=== PATIENT | male | born 1955 | race Caucasian/White ===

== ENCOUNTER 2017-02-24 18:09 | Inpatient (IN) | payer OTHER ==
[~2017-02-24] VITALS: Ht 180.3 cm; Wt 147.6 kg
[~2017-02-24 18:09] MED LIST: AMLO5TAB22 PO; ASPI325T PO; METO100 PO; MULT1TAB46 PO; PRAV40 PO; TICA90 PO
[2017-02-24] MEDS ORDERED: SODIUM CHLOR 0.9% 1000 ML INJ 1,000 ML IV SCH (18:21)
[2017-02-24 18:23] VITALS: BP 151/80; PULSE 60; RESP 24; TEMP 97.9; O2SAT 95
[2017-02-24] MEDS ORDERED: SODIUM CHLORIDE 0.9% FLUSH 5 ML FLUSH IV FLUSH PRN (18:30)
[2017-02-24 18:37] LABS: AUTOMATED NEUTROPHIL # 10.8 TH/MM3 (1.8-7.7); BASOPHIL # 0.1 TH/MM3 (0-0.2); BASOPHIL % 0.4 % (0.0-2.0); EOSINOPHIL # 0.1 TH/MM3 (0-0.4); EOSINOPHIL % 0.6 % (0.0-4.0); HEMATOCRIT 38.1 % (39.0-51.0); LYMPHOCYTE # 1.5 TH/MM3 (1.0-4.8); MEAN CELL VOLUME 86.5 FL (80.0-100.0); MEAN CORPUSCULAR HGB CONC 32.4 % (32.0-36.0); MONO % 8.6 % (0.0-8.0); NEUT % 79.4 % (16.0-70.0); PLATELET COUNT 263 TH/MM3 (150-450); RED CELL DISTRIBUTION WIDTH 16.6 % (11.6-17.2); WHITE BLOOD COUNT 13.6 TH/MM3 (4.0-11.0)
[2017-02-24 18:40] LABS: HEMO FLAGS AUTO DIFF
[2017-02-24] MEDS ORDERED: LISI40TA PO (18:44)
[2017-02-24] MEDS ORDERED: CLOP75TA PO (18:44)
[2017-02-24] MEDS ORDERED: PRAV40TA2 PO (18:44)
[2017-02-24] MEDS ORDERED: METO100T PO (18:44)
[2017-02-24] MEDS ORDERED: FURO20TA PO (18:44)
[2017-02-24] MEDS ORDERED: AMLO5TAB2 PO (18:44)
[2017-02-24 18:45] LABS: APTT (PATIENT) 26.6 SEC (24.3-30.1); INTERNATIONAL NORMALIZED RATIO 1.2 RATIO; PROTHROMBIN TIME - PATIENT 13.8 SEC (9.8-11.6)
--- NOTE | 2017-02-24 18:47 | PD ---
HPI Chief Complaint: General Weakness Time Seen by Provider: 18:21 Travel History International Travel<30 days: No Contact w/Intl Traveler<30days: No Traveled to known affect area: No History of Present Illness HPI The patient is a 61-year-old male who presents to the emergency department via EMS for generalized weakness. The patient notes a 1 month history of intermittent shortness of breath that is worse with exertion. The patient has some increased generalized malaise and weakness of the last several days. The patient states he developed shortness of breath while bending over to put on his shoes earlier today. He does note mild bilateral lower extremity edema as well as bilateral lower extremity weakness. The patient does have a history of chronic osteoarthritis to the right hip with "[id number]" arthritis which occasionally makes it difficult to ambulate and stand upright. He denies any headache, chest pain, nausea, vomiting, diarrhea, or abdominal pain. He does note slightly discolored urine which is been dark over the last several days, attributes it to dehydration. The patient does have a history of atrial fibrillation for which she takes Plavix. Symptoms are moderate, there are no alleviating or exacerbating factors. PFSH Past Medical History Arthritis: Yes Asthma: Yes Atrial Fibrillation: Yes Autoimmune Disease: No Blood Disorders: No Cancer: No Cardiovascular Problems: Yes Chemotherapy: No Diabetes: Yes Patient Takes Glucophage: No Endocrine: No Genitourinary: No Hypertension: Yes Immune Disorder: Yes Musculoskeletal: Yes Neurologic: No Psychiatric: No Respiratory: Yes Myocardial Infarction: Yes (stents x 2012 ) Radiation Therapy: No Past Surgical History Abdominal Surgery: Yes Appendectomy: Yes Joint Replacement: Yes Oral Surgery: Yes Pacemaker: No Tonsillectomy: Yes Other Surgery: Yes Social History Alcohol Use: No Tobacco Use: No Substance Use: No Allergies-Medications (Allergen,Severity, Reaction): Coded Allergies: ciprofloxacin (Unverified Allergy, Severe, 02/12/17) levofloxacin (Unverified Allergy, Severe, 02/12/17) morphine (Unverified Allergy, Severe, Nausea/Vomiting, 02/12/17) Reported Meds & Prescriptions Reported Meds & Active Scripts Active Reported Furosemide 20 Mg Tab 20 Mg PO DAILY Metoprolol Tartrate 100 Mg Tab 100 Mg PO BID Amlodipine (Amlodipine Besylate) 5 Mg Tab 5 Mg PO DAILY Clopidogrel (Clopidogrel Bisulfate) 75 Mg Tab 75 Mg PO DAILY Pravastatin 40 Mg Tab 40 Mg PO DAILY Lisinopril 40 Mg Tab 40 Mg PO DAILY Review of Systems Except as stated in HPI: all other systems reviewed are Neg General / Constitutional: No: Fever HENT: No: Headaches, Lightheadedness Cardiovascular: Positive: Irregular Rhythm, No: Chest Pain or Discomfort, Diaphoresis Respiratory: Positive: Shortness of Breath, No: Cough Gastrointestinal: No: Nausea, Vomiting, Diarrhea, Abdominal Pain Genitourinary: No: Dysuria Musculoskeletal: Positive: Weakness Neurologic: Positive: Weakness Physical Exam Narrative GENERAL: Awake, alert, pleasant 61-year-old male who appears his stated age and is in no acute respiratory distress. SKIN: Focused skin assessment warm/dry. HEAD: Atraumatic. Normocephalic. EYES: Pupils equal and round. No scleral icterus. No injection or drainage. ENT: No nasal bleeding or discharge. Slightly dry mucous membranes. NECK: Trachea midline. No JVD. CARDIOVASCULAR: Irregularly irregular, heart rate in the 70s. RESPIRATORY: No accessory muscle use. Minimally diminished breath sounds in the bases bilateral with crackles. GASTROINTESTINAL: Abdomen obese, no rebound tenderness. MUSCULOSKELETAL: Bilateral lower extremity pitting edema from the knees inferiorly. Ecchymosis noted over the right great toe. NEUROLOGICAL: Awake and alert. No obvious cranial nerve deficits. Motor grossly within normal limits. Normal speech. Nonfocal. Oriented 4. Follows commands without difficulty. PSYCHIATRIC: Appropriate mood and affect; insight and judgment normal. Data Data Last Documented VS Vital Signs Date Time Temp Pulse Resp B/P (MAP) Pulse Ox O2 Delivery O2 Flow Rate FiO2 02/24/17 18:23 97.9 60 24 151/80 (103) 95 Nasal Cannula 2.00 Orders Orders Electrocardiogram (02/24/17 18:21) Complete Blood Count With Diff (02/24/17 18:21) Comprehensive Metabolic Panel (02/24/17 18:21) Creatine Kinase (Cpk) (02/24/17 18:21) Prothrombin Time / Inr (Pt) (02/24/17 18:21) Act Partial Throm Time (Ptt) (02/24/17 18:21) Troponin I (02/24/17 18:21) Thyroid Stimulating Hormone (02/24/17 18:21) Urinalysis - C+S If Indicated (02/24/17 18:21) Chest, Single Ap (02/24/17 18:21) Ct Brain W/O Iv Contrast(Rout) (02/24/17 18:21) Blood Glucose (02/24/17 18:21) Ecg Monitoring (02/24/17 18:21) Iv Access Insert/Monitor (02/24/17 18:21) Oximetry (02/24/17 18:21) Sodium Chloride 0.9% Flush (Ns Flush) (02/24/17 18:30) Sodium Chlor 0.9% 1000 Ml Inj (Ns 1000 M (02/24/17 18:21) B-Type Natriuretic Peptide (02/24/17 18:21) Toe (Min 2vws) (02/24/17 ) Potassium Chloride (Kcl) (02/24/17 19:15) Furosemide Inj (Lasix Inj) (02/24/17 19:15) Admit Order (Ed Use Only) (02/24/17 20:01) Labs Laboratory Tests Test 02/24/17 18:25 02/24/17 20:00 White Blood Count 13.6 TH/MM3 Red Blood Count 4.40 MIL/MM3 Hemoglobin 12.3 GM/DL Hematocrit 38.1 % Mean Corpuscular Volume 86.5 FL Mean Corpuscular Hemoglobin 28.0 PG Mean Corpuscular Hemoglobin Concent 32.4 % Red Cell Distribution Width 16.6 % Platelet Count 263 TH/MM3 Mean Platelet Volume 8.7 FL Neutrophils (%) (Auto) 79.4 % Lymphocytes (%) (Auto) 11.0 % Monocytes (%) (Auto) 8.6 % Eosinophils (%) (Auto) 0.6 % Basophils (%) (Auto) 0.4 % Neutrophils # (Auto) 10.8 TH/MM3 Lymphocytes # (Auto) 1.5 TH/MM3 Monocytes # (Auto) 1.2 TH/MM3 Eosinophils # (Auto) 0.1 TH/MM3 Basophils # (Auto) 0.1 TH/MM3 CBC Comment AUTO DIFF Differential Total Cells Counted 100 Neutrophils % (Manual) 63 % Band Neutrophils % 15 % Lymphocytes % 11 % Monocytes % 7 % Neutrophils # (Manual) 11.2 TH/MM3 Metamyelocytes 1 % Myelocytes 3 % Nucleated Red Blood Cells 2 /100 WBC Differential Comment FINAL DIFF MANUAL Toxic Granulation 1+ Platelet Estimate NORMAL Platelet Morphology Comment NORMAL Prothrombin Time 13.8 SEC Prothromb Time International Ratio 1.2 RATIO Activated Partial Thromboplast Time 26.6 SEC Blood Urea Nitrogen 41 MG/DL Creatinine 1.34 MG/DL Random Glucose 109 MG/DL Total Protein 6.8 GM/DL Albumin 2.3 GM/DL Calcium Level 8.7 MG/DL Alkaline Phosphatase 153 U/L Aspartate Amino Transf (AST/SGOT) 53 U/L Alanine Aminotransferase (ALT/SGPT) 71 U/L Total Bilirubin 2.6 MG/DL Sodium Level 141 MEQ/L Potassium Level 3.3 MEQ/L Chloride Level 105 MEQ/L Carbon Dioxide Level 27.7 MEQ/L Anion Gap 8 MEQ/L Estimat Glomerular Filtration Rate 54 ML/MIN Total Creatine Kinase 16 U/L Troponin I LESS THAN 0.02 NG/ML B-Type Natriuretic Peptide 330 PG/ML Thyroid Stimulating Hormone 3rd Gen 4.740 uIU/ML Urine Color DARK-YELLOW Urine Turbidity HAZY Urine pH 6.0 Urine Specific [place] 1.027 Urine Protein 30 mg/dL Urine Glucose (UA) NEG mg/dL Urine Ketones TRACE mg/dL Urine Occult Blood MOD Urine Nitrite NEG Urine Bilirubin NEG Urine Urobilinogen 8.0 MG/DL Urine Leukocyte Esterase LARGE Urine RBC 6 /hpf Urine WBC 63 /hpf Urine Bacteria MANY /hpf Urine Hyaline Casts 4 /lpf Urine Mucus FEW /lpf Microscopic Urinalysis Comment CATH-CULTURE IND Urine Random Creatinine 206 MG/DL Urine Random Total Protein 88 MG/DL Urine Protein/Creatinine Ratio 0.43 MDM Medical Decision Making Medical Screen Exam Complete: Yes Emergency Medical Condition: Yes Medical Record Reviewed: Yes Interpretation(s) EKG reveals atrial fibrillation with a rate of 77. Intraventricular conduction delay with QRS of 148 ms. RSR prime in V1. Differential Diagnosis Differential diagnosis includes generalized weakness, rhabdomyolysis, myopathy, neuropathy, subdural hemorrhage, pneumonia, UTI, hyponatremia, dehydration, acute renal failure, deconditioning. Narrative Course IV was established, labs are drawn and sent, and the patient was placed on cardiac telemetry monitoring and continuous pulse oximetry monitoring. EKG was ordered and interpreted. CT of the brain was obtained. Chest x-ray was obtained. IV fluids were started. X-ray of the right great toe was obtained. The patient was signed out to the oncoming physician at 7 PM the laboratory evaluation, x-ray pending, and CT pending. Condition: Stable Luis M Logan MD Feb 24, 2017 18:47
--- NOTE | 2017-02-24 18:51 | RADRPT ---
EXAM DATE/TIME: 02/24/2017 18:33 [facility] COMPARISON: CHEST SINGLE AP, September 23, 2014, 15:28. INDICATIONS : Short of breath MEDICAL HISTORY : Diabetes mellitus type II. SURGICAL HISTORY : None. ENCOUNTER: Initial ACUITY: 2 days PAIN SCORE: 0/10 LOCATION: Chest FINDINGS: The heart is enlarged. Diffuse bilateral pulmonary infiltrates are noted consistent with moderate pu lmonary edema versus pneumonia. Clinical correlation is recommended. Degenerative changes are noted throughout the thoracic spine. CONCLUSION: 1. Diffuse bilateral pulmonary infiltrates consistent with moderate pulmonary edema versus pneumonia. Clinical correlation is recommended. 2. Cardiomegaly. 3. Degenerative changes throughout the thoracic spine. Adan Leon MD on February 24, 2017 at 18:39 Board Certified Radiologist. This report was verified electronically.
[2017-02-24 18:57] LABS: ALT (GPT) 71 U/L (12-78); ANION GAP 8 MEQ/L (5-15); AST (GOT) 53 U/L (15-37); BICARBONATE 27.7 MEQ/L (21.0-32.0); BLOOD UREA NITROGEN 41 MG/DL (7-18); CHLORIDE 105 MEQ/L (98-107); GLOMERULAR FILTRATION RATE 54 ML/MIN (>89); POTASSIUM 3.3 MEQ/L (3.5-5.1); SODIUM (NA) 141 MEQ/L (136-145)
--- NOTE | 2017-02-24 19:03 | RADRPT ---
EXAM DATE/TIME: 02/24/2017 18:35 [facility] COMPARISON: No previous studies available for comparison. INDICATIONS : Pain from hitting toe on . MEDICAL HISTORY : None. SURGICAL HISTORY : None. ENCOUNTER: Initial ACUITY: 1 day PAIN SCORE: 1/10 LOCATION: Right first digit. FINDINGS: Examination of the first digit of the right foot demonstrates no evidence of fracture or dislocation. No radiopaque foreign bodies are seen. The soft tissues are intact. CONCLUSION: No fracture or subluxation demonstrated of the great toe. Moderate to severe osteoarthritis in the fi rst metatarsophalangeal joint and sesamoids. Kalen Simmons MD on February 24, 2017 at 19:01 Board Certified Radiologist. This report was verified electronically.
--- NOTE | 2017-02-24 19:05 | RADRPT ---
EXAM DATE/TIME: 02/24/2017 18:41 [facility] COMPARISON: CT BRAIN W/O CONTRAST, September 23, 2014, 15:02. INDICATIONS : Generalized weakness. RADIATION DOSE: 44.48 CTDIvol (mGy) MEDICAL HISTORY : Cardiovascular disease. Hypertension. SURGICAL HISTORY : Appendectomy. ENCOUNTER: Initial ACUITY: 1 day PAIN SCALE: 0/10 LOCATION: cranial TECHNIQUE: Multiple contiguous axial images were obtained of the head. Using automated exposure control and adj ustment of the mA and/or kV according to patient size, radiation dose was kept as low as reasonably a chievable to obtain optimal diagnostic quality images. DICOM format image data is available electro nically for review and comparison. FINDINGS: CEREBRUM: The ventricles are normal for age. No evidence of midline shift, mass lesion, hemorrhage or acute in farction. No extra-axial fluid collections are seen. Subcentimeter, old lacunar infarct of the right thalamus again noted. POSTERIOR FOSSA: The cerebellum and brainstem are intact. The 4th ventricle is midline. The cerebellopontine angle i s unremarkable. EXTRACRANIAL: The visualized portion of the orbits is intact. SKULL: The calvaria is intact. No evidence of skull fracture. CONCLUSION: No acute intracranial abnormality demonstrated. Small, old right thalamic infarct. Kalen Simmons MD on February 24, 2017 at 19:02 Board Certified Radiologist. This report was verified electronically.
[2017-02-24 19:07] LABS: ALKALINE PHOSPHATASE 153 U/L (45-117); BANDS 15 % (0-6); CORRECTED NUCLEATED RBC 2 /100 WBC (0-0); METAMYELOCYTES 1 % (0-1); MYELOCYTES 3 % (0-0); NEUTROPHIL # MANUAL DIFF 11.2 TH/MM3 (1.8-7.7); POLYS (SEG NEUTROPHILS) 63 % (16-70); TOTAL BILIRUBIN ADULT 2.6 MG/DL (0.2-1.0); WBC DIFF SAMPLE 100
[2017-02-24 19:08] LABS: CREATINE KINASE 16 U/L (39-308)
--- NOTE | 2017-02-24 19:08 | PD ---
Data Data Last Documented VS Vital Signs Date Time Temp Pulse Resp B/P (MAP) Pulse Ox O2 Delivery O2 Flow Rate FiO2 02/24/17 18:23 97.9 60 24 151/80 (103) 95 Nasal Cannula 2.00 Orders Orders Electrocardiogram (02/24/17 18:21) Complete Blood Count With Diff (02/24/17 18:21) Comprehensive Metabolic Panel (02/24/17 18:21) Creatine Kinase (Cpk) (02/24/17 18:21) Prothrombin Time / Inr (Pt) (02/24/17 18:21) Act Partial Throm Time (Ptt) (02/24/17 18:21) Troponin I (02/24/17 18:21) Thyroid Stimulating Hormone (02/24/17 18:21) Urinalysis - C+S If Indicated (02/24/17 18:21) Chest, Single Ap (02/24/17 18:21) Ct Brain W/O Iv Contrast(Rout) (02/24/17 18:21) Blood Glucose (02/24/17 18:21) Ecg Monitoring (02/24/17 18:21) Iv Access Insert/Monitor (02/24/17 18:21) Oximetry (02/24/17 18:21) Sodium Chloride 0.9% Flush (Ns Flush) (02/24/17 18:30) Sodium Chlor 0.9% 1000 Ml Inj (Ns 1000 M (02/24/17 18:21) B-Type Natriuretic Peptide (02/24/17 18:21) Toe (Min 2vws) (02/24/17 ) Potassium Chloride (Kcl) (02/24/17 19:15) Furosemide Inj (Lasix Inj) (02/24/17 19:15) Admit Order (Ed Use Only) (02/24/17 20:01) Labs Laboratory Tests Test 02/24/17 18:25 White Blood Count 13.6 TH/MM3 Red Blood Count 4.40 MIL/MM3 Hemoglobin 12.3 GM/DL Hematocrit 38.1 % Mean Corpuscular Volume 86.5 FL Mean Corpuscular Hemoglobin 28.0 PG Mean Corpuscular Hemoglobin Concent 32.4 % Red Cell Distribution Width 16.6 % Platelet Count 263 TH/MM3 Mean Platelet Volume 8.7 FL Neutrophils (%) (Auto) 79.4 % Lymphocytes (%) (Auto) 11.0 % Monocytes (%) (Auto) 8.6 % Eosinophils (%) (Auto) 0.6 % Basophils (%) (Auto) 0.4 % Neutrophils # (Auto) 10.8 TH/MM3 Lymphocytes # (Auto) 1.5 TH/MM3 Monocytes # (Auto) 1.2 TH/MM3 Eosinophils # (Auto) 0.1 TH/MM3 Basophils # (Auto) 0.1 TH/MM3 CBC Comment AUTO DIFF Differential Total Cells Counted 100 Neutrophils % (Manual) 63 % Band Neutrophils % 15 % Lymphocytes % 11 % Monocytes % 7 % Neutrophils # (Manual) 11.2 TH/MM3 Metamyelocytes 1 % Myelocytes 3 % Nucleated Red Blood Cells 2 /100 WBC Differential Comment FINAL DIFF MANUAL Toxic Granulation 1+ Platelet Estimate NORMAL Platelet Morphology Comment NORMAL Prothrombin Time 13.8 SEC Prothromb Time International Ratio 1.2 RATIO Activated Partial Thromboplast Time 26.6 SEC Blood Urea Nitrogen 41 MG/DL Creatinine 1.34 MG/DL Random Glucose 109 MG/DL Total Protein 6.8 GM/DL Albumin 2.3 GM/DL Calcium Level 8.7 MG/DL Alkaline Phosphatase 153 U/L Aspartate Amino Transf (AST/SGOT) 53 U/L Alanine Aminotransferase (ALT/SGPT) 71 U/L Total Bilirubin 2.6 MG/DL Sodium Level 141 MEQ/L Potassium Level 3.3 MEQ/L Chloride Level 105 MEQ/L Carbon Dioxide Level 27.7 MEQ/L Anion Gap 8 MEQ/L Estimat Glomerular Filtration Rate 54 ML/MIN Total Creatine Kinase 16 U/L Troponin I LESS THAN 0.02 NG/ML B-Type Natriuretic Peptide 330 PG/ML Thyroid Stimulating Hormone 3rd Gen 4.740 uIU/ML [facility] Medical Record Reviewed: Yes Supervised Visit with AMRITA: No Interpretation(s) Last Impressions Head CT 02/24/171820 Signed Impressions: Service Date/Time: Friday, February 24, 2017 18:41 - CONCLUSION: No acute intracranial abnormality demonstrated. Small, old right thalamic infarct. Kalen Simmons MD Chest X-Ray 02/24/171820 Signed Impressions: Service Date/Time: Friday, February 24, 2017 18:33 - CONCLUSION: 1. Diffuse bilateral pulmonary infiltrates consistent with moderate pulmonary edema versus pneumonia. Clinical correlation is recommended. 2. Cardiomegaly. 3. Degenerative changes throughout the thoracic spine. Adan Leon MD Toe X-Ray 02/24/17 0000 Signed Impressions: Service Date/Time: Friday, February 24, 2017 18:35 - CONCLUSION: No fracture or subluxation demonstrated of the great toe. Moderate to severe osteoarthritis in the first metatarsophalangeal joint and sesamoids. Kalen Simmons MD Narrative Course During the course of the patients emergency department visit, the patients history, examination, and differential diagnosis were reviewed with the patient. The patient had IV access obtained and blood work sent for analysis. The patient's case was checked out to me by Dr. Logan at the conclusion of his shift. Please see his initial complete history and physical. The patient reportedly presented with a one-month history of generalized weakness with shortness of breath with exertion and lower extremity edema. The patient's chest x-ray revealed pulmonary edema concerning for new onset congestive heart failure. The patient was initially provided normal saline IV fluids as he did report dark urine, however this was discontinued after his chest x-ray revealed cardiomegaly and pulmonary edema. The patients laboratory studies were reviewed and remarkable for a white count of 13.6, hemoglobin 12.3, platelets 263 with neutrophils 79.4, monocytes 8.6, CMP is remarkable for potassium of 3.3, BUN 41, creatinine 1.34, glucose 109, AST 53, albumin 2.3. The patient's hypoalbuminemia could be conservative to his lower extremity edema. The patient will have his potassium supplemented. PT 13.8, PTT 26.6 Radiology studies were reviewed and remarkable for a chest x-ray that shows cardiomegaly, pulmonary edema. X-ray of the patient's right first digit reveals no fracture or subluxation of the great toe, moderate to severe osteoarthritis in the first metatarsal phalangeal joint and sesamoids. CT scan of the brain shows no acute intracranial abnormality, small old right thalamic infarct The patients results were discussed with the patient, including the plan of care. I explained that further testing and/ or monitoring is indicated based on the patients history, examination, and/ or laboratory findings. Therefore, I recommended admission for additional evaluation. The patient expressed understanding and was agreeable with this plan. The patient was admitted to the hospital in stable condition and sent to a bed under the care of the [facility]. Physician Communication Physician Communication The patient's case was discussed with Dr. Lerner who did agree to admit the patient for further evaluation and treatment at this time. Diagnosis Primary Impression: New onset of congestive heart failure Additional Impression: Generalized weakness Admitting Information Admitting Physician Requests: Admit Condition: Stable Vandana Euceda MD Feb 24, 2017 19:08
[2017-02-24 19:09] LABS: PLATELET ESTIMATE SMEAR NORMAL (NORMAL); PLATELET MORPHOLOGY NORMAL (NORMAL); SCAN/DIFF FINAL DIFF MANUAL; TOXIC GRANULATION 1+ (NORMAL)
[2017-02-24] MEDS ORDERED: FUROSEMIDE 40 MG/4 ML VIAL IV PUSH ONE (19:15)
[2017-02-24] MEDS ORDERED: POTASSIUM CHLORIDE 10 MEQ CONTROLLED RELEASE TAB PO ONE (19:15)
[2017-02-24 20:06] VITALS: BP 133/59; PULSE 75; RESP 16; O2SAT 96
[2017-02-24 20:40] LABS: BACTERIA, URINE MANY /hpf; BLOOD, URINE MOD (NEG); GLUCOSE,URINE NEG (NEG); HYALINE CAST, URINE 4 /lpf (RARE); KETONE, URINE TRACE mg/dL (NEG); MUCUS URINE FEW /lpf (OCC); NITRITE,URINE NEG (NEG); URINE COLOR DARK-YELLOW (YELLW/STRAW)
[2017-02-24 20:42] LABS: COMMENT (UR) CATH-CULTURE IND; CULTURE IF INDICATED CATH CULTURE IND
--- NOTE | 2017-02-24 21:15 | HHI.HP ---
HPI Service [facility] Hospitalists Primary Care Physician Tai Cook MD Admission Diagnosis possible chf Chief Complaint: sob/falls/slurred speech Travel History International Travel<30 Days: No Contact w/Intl Traveler <30 Da: No Traveled to Known Affected Are: No History of Present Illness Pt is 61 yo male with cad, ?afib,severe OA of right hip, untreated sleep apnea who presents with c/o sob. Pt says he has been getting progressively sob for over 6 months but now is not only sob with exertion but even with rest and talking. Says his sealer sander did an echo about 6m ago and apparently everything was ok. Pt has been trying to lose weight in order to get a afia on the right and claims to have lost 50pounds. Says he coughs sometimes on fluids when trying to drink them in bed. No fevers or chills. no vomiting.or diarrhea. Denies any cp or pleurisy. Girlfriend and pt say he takes up to 32 total pills per day of alleve/motrin for past 9 months. Some days less and even some days he tries to take none. He was using some ultram as well. Pt says 6 months ago his brillinta was changed to plavix.. Daughter says she made him come in because he has been falling and even slurring his speech. Pt not clear if he carries a dx of afib but on telemetry in ED he is in Afib. ED gave lasix iv x 1. Review of Systems Other sob fall slurred speech. right hip pain Past Family Social History Past Medical History cad, 2015 RCA stent ?afib htn old lacunar cva hyperlipidemia untreated WESLEY severe OA right hip Hx left AFIA. several revisions Tonsils/adenoids Reported Medications Furosemide 20 Mg Tab 20 Mg PO DAILY prn Metoprolol Tartrate 100 Mg Tab 100 Mg PO BID Amlodipine (Amlodipine Besylate) 5 Mg Tab 5 Mg PO DAILY Clopidogrel (Clopidogrel Bisulfate) 75 Mg Tab 75 Mg PO DAILY Pravastatin 40 Mg Tab 40 Mg PO DAILY Lisinopril 40 Mg Tab 40 Mg PO DAILY ASA. Pt uses up to 32 tablets of motrin/alleve per day. prn ultram Allergies: Coded Allergies: ciprofloxacin (Unverified Allergy, Severe, 02/12/17) levofloxacin (Unverified Allergy, Severe, 02/12/17) morphine (Unverified Allergy, Severe, Nausea/Vomiting, 02/12/17) Family History nc Social History no tob occ etoh Physical Exam Vital Signs lying in bed no respitratory distress family thought he was a little bit slurred no facial droop moves all 4 exts heart reg lung no wheeze/crackle abd s/nt ext mild trace edema ecchymosis of lower ext/feet/toes Vital Signs Date Time Temp Pulse Resp B/P (MAP) Pulse Ox O2 Delivery O2 Flow Rate FiO2 02/24/17 20:06 75 16 133/59 (83) 96 Nasal Cannula 2.00 02/24/17 18:23 97.9 60 24 151/80 (103) 95 Nasal Cannula 2.00 02/24/17 18:16 18 Laboratory Laboratory Tests Test 02/24/17 18:25 02/24/17 20:00 White Blood Count 13.6 Red Blood Count 4.40 Hemoglobin 12.3 Hematocrit 38.1 Mean Corpuscular Volume 86.5 Mean Corpuscular Hemoglobin 28.0 Mean Corpuscular Hemoglobin Concent 32.4 Red Cell Distribution Width 16.6 Platelet Count 263 Mean Platelet Volume 8.7 Neutrophils (%) (Auto) 79.4 Lymphocytes (%) (Auto) 11.0 Monocytes (%) (Auto) 8.6 Eosinophils (%) (Auto) 0.6 Basophils (%) (Auto) 0.4 Neutrophils # (Auto) 10.8 Lymphocytes # (Auto) 1.5 Monocytes # (Auto) 1.2 Eosinophils # (Auto) 0.1 Basophils # (Auto) 0.1 CBC Comment AUTO DIFF Differential Total Cells Counted 100 Neutrophils % (Manual) 63 Band Neutrophils % 15 Lymphocytes % 11 Monocytes % 7 Neutrophils # (Manual) 11.2 Metamyelocytes 1 Myelocytes 3 Nucleated Red Blood Cells 2 Differential Comment FINAL DIFF MANUAL Toxic Granulation 1+ Platelet Estimate NORMAL Platelet Morphology Comment NORMAL Prothrombin Time 13.8 Prothromb Time International Ratio 1.2 Activated Partial Thromboplast Time 26.6 Blood Urea Nitrogen 41 Creatinine 1.34 Random Glucose 109 Total Protein 6.8 Albumin 2.3 Calcium Level 8.7 Alkaline Phosphatase 153 Aspartate Amino Transf (AST/SGOT) 53 Alanine Aminotransferase (ALT/SGPT) 71 Total Bilirubin 2.6 Sodium Level 141 Potassium Level 3.3 Chloride Level 105 Carbon Dioxide Level 27.7 Anion Gap 8 Estimat Glomerular Filtration Rate 54 Total Creatine Kinase 16 Troponin I LESS THAN 0.02 B-Type Natriuretic Peptide 330 Thyroid Stimulating Hormone 3rd Gen 4.740 Urine Color DARK-YELLOW Urine Turbidity HAZY Urine pH 6.0 Urine Specific [place] 1.027 Urine Protein 30 Urine Glucose (UA) NEG Urine Ketones TRACE Urine Occult Blood MOD Urine Nitrite NEG Urine Bilirubin NEG Urine Urobilinogen 8.0 Urine Leukocyte Esterase LARGE Urine RBC 6 Urine WBC 63 Urine Bacteria MANY Urine Hyaline Casts 4 Urine Mucus FEW Microscopic Urinalysis Comment CATH-CULTURE IND Date/Time Source Procedure Growth Status 02/24/17 20:00 Urine Catheterized Urine Urine Culture Pending Received Result Diagram: 02/24/17182402/24/171824 Caprini VTE Risk Assessment Caprini VTE Risk Assessment: Mod/High Risk (score >= 2) Caprini Risk Assessment Model Point Value = 1 Point Value = 2 Point Value = 3 Point Value = 5 Age 41-60 Minor surgery BMI > 25 kg/m2 Swollen legs Varicose veins or History of unexplained or recurrent spontaneous Oral contraceptives or hormone replacement Sepsis (< 1 month) Serious lung disease, including pneumonia (< 1 month) Abnormal pulmonary function Acute myocardial infarction Congestive heart failure (< 1 month) History of inflammatory bowel disease Medical patient at bed rest Age 61-74 Arthroscopic surgery Major open surgery (> 45 min) Laparoscopic surgery (> 45 min) Malignancy Confined to bed (> 72 hours) Immobilizing plaster cast Central venous access Age >= 75 History of VTE Family history of VTE Factor V Leiden Prothrombin [id number] Lupus anticoagulant Anticardiolipin antibodies Elevated serum homocysteine Heparin-induced thrombocytopenia Other congenital or acquired thrombophilia Stroke (< 1 month) Elective arthroplasty Hip, pelvis, or leg fracture Acute spinal cord injury (< 1 month) Prophylaxis Regimen Total Risk Factor Score Risk Level Prophylaxis Regimen 0-1 Low Early ambulation 2 Moderate Order ONE of the following: *Sequential Compression Device (SCD) *Heparin 5000 units SQ BID 3-4 Higher Order ONE of the following medications: *Heparin 5000 units SQ TID *Enoxaparin/Lovenox 40 mg SQ daily (WT < 150 kg, CrCl > 30 mL/min) *Enoxaparin/Lovenox 30 mg SQ daily (WT < 150 kg, CrCl > 10-29 mL/min) *Enoxaparin/Lovenox 30 mg SQ BID (WT < 150 kg, CrCl > 30 mL/min) AND/OR *Sequential Compression Device (SCD) 5 or more Highest Order ONE of the following medications: *Heparin 5000 units SQ TID (Preferred with Epidurals) *Enoxaparin/Lovenox 40 mg SQ daily (WT < 150 kg, CrCl > 30 mL/min) *Enoxaparin/Lovenox 30 mg SQ daily (WT < 150 kg, CrCl > 10-29 mL/min) *Enoxaparin/Lovenox 30 mg SQ BID (WT < 150 kg, CrCl > 30 mL/min) AND *Sequential Compression Device (SCD) Assessment and Plan Problem List: (1) SOB (shortness of breath) ICD Codes: R06.02 - Shortness of breath Status: Acute Plan: Pt is 61 yo male with cad, ?afib,severe OA of right hip, untreated sleep apnea presents with c/o sob. Pt says he has been getting progressively sob for over 6 months but now is not only sob with exertion but even with rest and talking. Says his sealer sander did an echo about 6m ago and apparently everything was ok. Pt has been trying to lose weight in order to get a afia on the right and claims to have lost 50pounds. Says he coughs sometimes on fluids when trying to drink them in bed. No fevers or chills. no vomiting.or diarrhea. Denies any cp or pleurisy. Girlfriend and pt say he takes up to 32 total pills per day of alleve/motrin for past 9 months. Some days less and even some days he tries to take none. He was using some ultram as well. Pt says 6 months ago his brillinta was changed to plavix.. Daughter says she made him come in because he has been falling and even slurring his speech. Pt not clear if he carries a dx of afib but on telemetry in ED he is in Afib. ED gave lasix iv x 1. hypoalbumenemia noted r/o chf/pulmonary htn r/o proteinuria nsaid abuse afib. unclear if new. reported slurred speech/falls...r/o embolic cva from afib amelia.....could be prerenal from vascular depletion/chf...?nsaid related uti hypoalbumenemia echo. teleemetry MRI brain am: bmp. decide on further lasix dosing u/a. protein/cr ratio will likely require anticoagulation cont asa/plavix for now ultram for pain prn. stop alleve/motrin doppler u/s lower ext. consider cta Pt sharon will notify his sealer sander during the admission (2) Afib ICD Codes: I48.91 - Unspecified atrial fibrillation Status: Acute (3) CAD (coronary artery disease) ICD Codes: I25.10 - Coronary artery disease Status: Chronic (4) CVA (cerebral vascular accident) ICD Codes: I63.9 - CVA (cerebral vascular accident) Status: Chronic (5) Hypertension ICD Codes: I10 - Hypertension Status: Chronic (6) WESLEY (obstructive sleep apnea) ICD Codes: G47.33 - Obstructive sleep apnea (adult) (pediatric) Status: Chronic Physician Certification 2 Midnight Certification Type: Admission for Inpatient Services Order for Inpatient Services 3The services are ordered in accordance with Medicare regulations or non- Medicare payer requirements, as applicable. In the case of services not specified as inpatient-only, they are appropriately provided as inpatient services in accordance with the 2-midnight benchmark. Estimated LOS (days): 3 3 days is the estimated time the patient will need to remain in the hospital, assuming treatment plan goals are met and no additional complications. Post-Hospital Plan: Home Problem Qualifiers (1) Afib: Qualified Codes: I48.91 - Unspecified atrial fibrillation (2) CAD (coronary artery disease): Qualified Codes: I25.10 - Atherosclerotic heart disease of [place] coronary artery without angina pectoris (3) Hypertension: Qualified Codes: I10 - Essential (primary) hypertension Negrito Lerner MD Feb 24, 2017 21:15
[2017-02-24] MEDS: cefTRIAXone INJ 1,000 MG in SODIUM CHLORIDE 0.9% INJ 100 ML IV SCH (22:31)
[2017-02-24 22:34] VITALS: BP 158/77; PULSE 87; RESP 18; O2SAT 96
[2017-02-24] MEDS: traMADol HCL 50 MG TAB PO PRN (22:39)
--- NOTE | 2017-02-24 23:45 | RADRPT ---
EXAM DATE/TIME: 02/24/2017 22:29 [facility] COMPARISON: CT BRAIN W/O CONTRAST, February 24, 2017, 18:41. MRI BRAIN W/O CONTRAST, September 23, 2014, 21:06. INDICATIONS : CVA. Generalized weakness. MEDICAL HISTORY : Hypertension. SURGICAL HISTORY : Left hip ENCOUNTER: Initial ACUITY: 1 day PAIN SCORE: 0/10 LOCATION: head TECHNIQUE: Multiplanar, multisequence MRI of the brain was performed without contrast. FINDINGS: CEREBRUM: There is mass or atrophy. Ventricles are normal given the degree of atrophy present. No midline shif t, mass lesion, hemorrhage or acute infarction. No extraaxial fluid collections are seen. The pitui tary gland and suprasellar cistern are normal in configuration. WHITE MATTER: There is minimal periventricular white matter signal change, stable from the prior study. POSTERIOR FOSSA: The cerebellum and brainstem demonstrate no acute finding. The 4th ventricle is midline. The cerebel lopontine angle is unremarkable. The cerebellar tonsils are normal in position. DIFFUSION IMAGING: No focal areas of restricted diffusion are seen. No evidence of acute infarction. EXTRACRANIAL: The visualized portions of the orbits and paranasal sinuses are unremarkable. CONCLUSION: 1. No acute intracranial abnormality is identified. There are no findings to indicate recent ischemia . 2. Chronic changes include mild cerebral atrophy and periventricular white matter change characterist ic of chronic microvascular ischemia. Kalen Weiss MD on February 24, 2017 at 23:40 Board Certified Radiologist. This report was verified electronically.
--- NOTE | 2017-02-24 23:48 | RADRPT ---
EXAM DATE/TIME: 02/24/2017 22:29 [facility] COMPARISON: MRA BRAIN W/O CONTRAST, September 23, 2014, 21:06. INDICATIONS : CVA. MEDICAL HISTORY : Hypertension. SURGICAL HISTORY : Left hip. ENCOUNTER: Initial ACUITY: 1 day PAIN SCORE: 0/10 LOCATION: head Please note a normal MRA of the brain does not entirely exclude the possibility of a small aneurysm, nor the possibility of distal intracranial vessel disease. TECHNIQUE: 3D time of flight MRA was performed. Source images, multiplanar STS MIP, and 3D volume MIP reconstru ctions were reviewed. FINDINGS: Anterior circulation: The internal carotid arteries demonstrate no abnormality or atherosclerotic change. A1 segments and m ore distal anterior cerebral arteries are symmetric and within normal limits. The middle cerebral art thea branches demonstrate symmetric flow related enhancement. No aneurysm or high-grade stenosis is id entified. Posterior circulation: There are patent posterior cerebral arteries bilaterally with persistent circulation on the rig ht. Vertebral arteries are codominant. The basilar artery and posterior cerebral arteries demonstrate no significant stenosis or abnormality. No aneurysm is visualized. CONCLUSION: No acute intracranial vascular abnormality is identified. Kalen Weiss MD on February 24, 2017 at 23:43 Board Certified Radiologist. This report was verified electronically.
--- NOTE | 2017-02-24 23:54 | RADRPT ---
EXAM DATE/TIME: 02/24/2017 23:13 [facility] COMPARISON: No previous studies available for comparison. INDICATIONS : Bilateral leg swelling. MEDICAL HISTORY : Hypertension. Arthritis. A-fib. Cardiac arrest. Diabetes. Asthma. SURGICAL HISTORY : Tonsillectomy.Appendectomy. Left hip replacement. ENCOUNTER: Initial ACUITY: 1 day PAIN SCORE: 9/10 LOCATION: Bilateral legs. TECHNIQUE: Venous ultrasound of the left and right leg was performed from the inguinal ligament to the proximal calf. Real-time, color Doppler and spectral tracing, compression and augmentation techniques were us ed. FINDINGS: RIGHT LEG: There is normal compressibility of the deep venous system from the inguinal region to the proximal ca lf. No echogenic clot is seen in the lumen of the common femoral, femoral, popliteal, and posterior tibial veins. There is a normal response of the venous system to proximal and distal augmentation an d respiration. LEFT LEG: There is normal compressibility of the deep venous system from the inguinal region to the proximal ca lf. No echogenic clot is seen in the lumen of the common femoral, femoral, popliteal, and posterior tibial veins. There is a normal response of the venous system to proximal and distal augmentation an d respiration. CONCLUSION: No DVT is identified within either lower extremity. Kalen Weiss MD on February 24, 2017 at 23:52 Board Certified Radiologist. This report was verified electronically.
[2017-02-25] VITALS (24 sets, daily range): BP systolic 127–158; BP diastolic 60–89; PULSE 66–96; RESP 19–22; TEMP 97.9–99.5; O2SAT 92–97
[2017-02-25 06:47] LABS: AUTOMATED NEUTROPHIL # 12.3 TH/MM3 (1.8-7.7); BASOPHIL # 0.1 TH/MM3 (0-0.2); BASOPHIL % 0.4 % (0.0-2.0); EOSINOPHIL # 0.1 TH/MM3 (0-0.4); EOSINOPHIL % 0.9 % (0.0-4.0); HEMATOCRIT 37.6 % (39.0-51.0); LYMPH % 8.3 % (9.0-44.0); LYMPHOCYTE # 1.2 TH/MM3 (1.0-4.8); MEAN CELL VOLUME 85.6 FL (80.0-100.0); MEAN CORPUSCULAR HEMOGLOBIN 28.2 PG (27.0-34.0); MONO % 8.2 % (0.0-8.0); NEUT % 82.2 % (16.0-70.0); PLATELET COUNT 274 TH/MM3 (150-450); RED BLOOD COUNT 4.39 MIL/MM3 (4.50-5.90); RED CELL DISTRIBUTION WIDTH 15.9 % (11.6-17.2)
[2017-02-25 07:02] LABS: HEMO FLAGS AUTO DIFF
[2017-02-25 07:12] LABS: BICARBONATE 25.7 MEQ/L (21.0-32.0)
[2017-02-25] MEDS: CLOPIDOGREL 75 MG TAB PO SCH (09:14)
[2017-02-25] MEDS: METOPROLOL TARTRATE 100 MG TAB PO SCH ×2 (09:14→20:08)
[2017-02-25] MEDS: PRAVASTATIN SOD 40 MG TAB PO SCH (09:14)
[2017-02-25] MEDS: amLODIPine BESYLATE 5 MG TAB PO SCH (09:15)
[2017-02-25] MEDS: LISINOPRIL 20 MG TAB PO SCH (09:15)
--- NOTE | 2017-02-25 09:40 | HHI.PR ---
Subjective Remarks Less SOB from admission. Objective Vitals Vital Signs Date Time Temp Pulse Resp B/P (MAP) Pulse Ox O2 Delivery O2 Flow Rate FiO2 02/25/17 07:01 80 02/25/17 06:12 81 02/25/17 05:00 80 02/25/17 04:00 91 02/25/17 03:56 98.2 91 20 150/84 (106) 97 02/25/17 03:00 80 02/25/17 02:00 81 02/25/17 01:00 84 02/25/17 00:00 89 02/25/17 00:00 98.8 89 20 158/89 (112) 96 02/24/17 23:49 18 02/24/17 23:46 02/24/17 22:34 87 18 158/77 (104) 96 Nasal Cannula 2.00 02/24/17 20:06 75 16 133/59 (83) 96 Nasal Cannula 2.00 02/24/17 18:23 97.9 60 24 151/80 (103) 95 Nasal Cannula 2.00 02/24/17 18:16 18 Result Diagram: 02/25/17 0500 02/25/17 0500 Imaging Last Impressions Head CT 02/24/17 1821 Signed Impressions: Service Date/Time: Friday, February 24, 2017 18:41 - CONCLUSION: No acute intracranial abnormality demonstrated. Small, old right thalamic infarct. Kalen Simmons MD Chest X-Ray 02/24/17 1821 Signed Impressions: Service Date/Time: Friday, February 24, 2017 18:33 - CONCLUSION: 1. Diffuse bilateral pulmonary infiltrates consistent with moderate pulmonary edema versus pneumonia. Clinical correlation is recommended. 2. Cardiomegaly. 3. Degenerative changes throughout the thoracic spine. Adan Leon MD Toe X-Ray 02/24/17 0000 Signed Impressions: Service Date/Time: Friday, February 24, 2017 18:35 - CONCLUSION: No fracture or subluxation demonstrated of the great toe. Moderate to severe osteoarthritis in the first metatarsophalangeal joint and sesamoids. Kalen Simmons MD Lower Extremity Ultrasound 02/24/17 0000 Signed Impressions: Service Date/Time: Friday, February 24, 2017 23:13 - CONCLUSION: No DVT is identified within either lower extremity. Kalen Weiss MD Head Magnetic Resonance Angiography 02/24/17 0000 Signed Impressions: Service Date/Time: Friday, February 24, 2017 22:29 - CONCLUSION: No acute intracranial vascular abnormality is identified. Kalen Weiss MD Brain MRI 02/24/17 0000 Signed Impressions: Service Date/Time: Friday, February 24, 2017 22:29 - CONCLUSION: 1. No acute intracranial abnormality is identified. There are no findings to indicate recent ischemia. 2. Chronic changes include mild cerebral atrophy and periventricular white matter change characteristic of chronic microvascular ischemia. Kalen Weiss MD Objective Remarks GENERAL: This is a well-nourished, well-developed patient, in no apparent distress. CARDIOVASCULAR: Regular rate and rhythm without murmurs, gallops, or rubs. RESPIRATORY: Clear to auscultation. Breath sounds equal bilaterally. No wheezes , rales, or rhonchi. GASTROINTESTINAL: Abdomen soft, non-tender, nondistended. Normal active bowel sounds MUSCULOSKELETAL: Extremities without clubbing, cyanosis, or edema. NEURO: Alert & Oriented x4 to person, place, time, situation. Moves all ext x4 A/P Problem List: (1) SOB (shortness of breath) ICD Codes: R06.02 - Shortness of breath Status: Acute Plan: - Pt is 61 yo male with cad, ?afib,severe OA of right hip, untreated sleep apnea - presents with c/o sob. - Pt says he has been getting progressively sob for over 6 months - now is not only sob with exertion but even with rest and talking. - Per pt nutritional chemist did an echo about 6m ago and apparently everything was ok. - Intentional weight lose of 50 pounds in order to get right SEA - Pt cough if he tries to drink fluids in bed - Taking up to 32 NSAIDs/day at times alleve/motrin x 9 months d/t right hip pain. Also prn ultram - cardiology changed brillinta to plavix - also c/o slurred speech and falling at home - Afib new? - CXR (02/24/17) --> pulmonary edema - BMP (02/24/17) --> 330 - b/l doppler US (02/24/17) --> negative for DVT - Pt received lasix in the ER --> diuresed 1,800ml - Pt with hypoalbumenemia - echocardiogram done --> interpretation pending - r/o chf/pulmonary htn - obtain repeat CXR --> pending - continue lasix at 20mg daily - suspect untreated WESLEY is contributing - suspect some degree of hypercapnea. will obtain AM ABG 02/26 - obtain CTA chest, r/o PE (2) Fall at home ICD Codes: W19.XXXA - Unspecified fall, initial encounter; Y92.099 - Unspecified place in other non-institutional residence as the place of occurrence of the external cause Plan: - neuroimaging studies are negative, see above - pt with right hip OA & trying to loose weight for sugery - await PT evaluation (3) Slurred speech ICD Codes: R47.81 - Slurred speech Plan: - MRI brain (02/24/17) --> NO acute findings - MRA brain (02/24/17) --> NO acute findings - CT brain (02/24/17) --> NO acute findings - request Speech Therapy evaluation - obtain ABG, suspect AM hypercapnea - obtain tsh, free t4, b12, folate, rpr, ammonia level (4) Osteoarthritis of right hip ICD Codes: M16.11 - Unilateral primary osteoarthritis, right hip Plan: - excessive use of NSAIDs, see HPI - obtain x-ray series right hip - Pt follows with Ortho outpt, Dr. Clemens - obtain right hip series (5) Afib ICD Codes: I48.91 - Unspecified atrial fibrillation Status: Acute Plan: - chronicity unclear - unable to access [facility] records from [place] at this time - metoprolol - will discuss anticoagulation with Cardiology (6) CAD (coronary artery disease) ICD Codes: I25.10 - Coronary artery disease Status: Chronic Plan: - metoprolol, lisinopril - brillinta changed to plavix - plavix non-responder? (7) CVA (cerebral vascular accident) ICD Codes: I63.9 - CVA (cerebral vascular accident) Status: Chronic (8) Hypertension ICD Codes: I10 - Hypertension Status: Chronic Plan: - metoprolol, lisinopril (9) WESLEY (obstructive sleep apnea) ICD Codes: G47.33 - Obstructive sleep apnea (adult) (pediatric) Status: Chronic Plan: - pt states that he snores loudly - pt has NOT had w/u for WESLEY - obtain AM ABG - following hospitalization, pt will need outpt testing. Problem Qualifiers (1) Osteoarthritis of right hip: Qualified Codes: M16.11 - Unilateral primary osteoarthritis, right hip (2) CAD (coronary artery disease): Qualified Codes: I25.10 - Atherosclerotic heart disease of [place] coronary artery without angina pectoris (3) Hypertension: Qualified Codes: I10 - Essential (primary) hypertension Derek Adams DO Feb 25, 2017 09:40
[2017-02-25 10:35] LABS: BANDS 25 % (0-6); EOSINOPHILS 1 % (0-4); METAMYELOCYTES 2 % (0-1); NEUTROPHIL # MANUAL DIFF 13.4 TH/MM3 (1.8-7.7); POLYS (SEG NEUTROPHILS) 62 % (16-70); WBC DIFF SAMPLE 100
[2017-02-25 10:36] LABS: PLATELET ESTIMATE SMEAR NORMAL (NORMAL); PLATELET MORPHOLOGY NORMAL (NORMAL); SCAN/DIFF FINAL DIFF MANUAL; TOXIC GRANULATION 2+ (NORMAL)
--- NOTE | 2017-02-25 10:59 | RADRPT ---
EXAM DATE/TIME: 02/25/2017 09:37 [facility] COMPARISON: CHEST SINGLE AP, February 24, 2017, 18:33. INDICATIONS : Congestive heart failure. MEDICAL HISTORY : Cardiovascular disease. Hypertension SURGICAL HISTORY : Coronary artery stent. ENCOUNTER: Initial ACUITY: 1 day PAIN SCORE: 0/10 LOCATION: Bilateral chest FINDINGS: There is moderate congestive failure. Marked cardiomegaly is evident. There is no significant pleur al effusion. Central line is in good position. CONCLUSION: Moderate congestive failure. Ayo Brantley MD FACR on February 25, 2017 at 10:57 Board Certified Radiologist. This report was verified electronically.
[2017-02-25] MEDS ORDERED: IOHEXOL 350 MG/ML 10 ML VIAL (for RAD DIAG) IVCONTRAST ONE (12:02)
[2017-02-25] MEDS: POTASSIUM CHLORIDE 20 MEQ CONTROLLED RELEASE TAB PO SCH ×2 (12:09→15:29)
[2017-02-25] MEDS: traMADol HCL 50 MG TAB PO PRN ×2 (12:13→17:37)
[2017-02-25] MEDS: FUROSEMIDE 20 MG TAB PO SCH (12:16)
--- NOTE | 2017-02-25 12:21 | RADRPT ---
EXAM DATE/TIME: 02/25/2017 11:48 [facility] COMPARISON: No previous studies available for comparison. INDICATIONS : Dyspnea. IV CONTRAST: 74 cc Omnipaque 350 (iohexol) IV RADIATION DOSE: 23.33 CTDIvol (mGy) ; Patient body habitus MEDICAL HISTORY : Myocardial infarction. Hypertension. Cardiovascular diseasediabetes, asthma SURGICAL HISTORY : Appendectomy. cardiac stent ENCOUNTER: Initial ACUITY: 1 day PAIN SCALE: 0/10 LOCATION: Bilateral chest TECHNIQUE: Volumetric scanning of the chest was performed using a pulmonary embolism protocol MIP images were re constructed. Using automated exposure control and adjustment of the mA and/or kV according to patien t size, radiation dose was kept as low as reasonably achievable to obtain optimal diagnostic quality images. DICOM format image data is available electronically for review and comparison. Follow-up recommendations for detected pulmonary nodules are based at a minimum on nodule size and pa tient risk factors according to Fleischner Society Guidelines. FINDINGS: Patchy air space disease is seen in both lungs with scattered areas of consolidation. The heart is minimally enlarged without pericardial effusion There is reasonable visualization of the central pulmonary vessels. I do not see central pulmonary e mboli Minimal nonspecific adenopathy is seen in the AP window and in the precarinal region. The portion of the liver and spleen identified are free of focal defects. CONCLUSION: Patchy peripheral airspace disease nonspecific mediastinal adenopathy. Airspace disease can be acute or chronic. Ayo Brantley MD FACR on February 25, 2017 at 12:17 Board Certified Radiologist. This report was verified electronically.
[2017-02-25 12:56] LABS: FREE T4 1.4 NG/DL (0.76-1.46)
--- NOTE | 2017-02-25 16:09 | EKG ---
Date Performed: 02/24/2017 Time Performed: 18:21:43 PTAGE: 61 years EKG: ATRIAL FIBRILLATION INTRAVENTRICULAR CONDUCTION DELAY ABNORMAL ECG Compared to PREVIOUS TRACING , atrial fibrillation has replaced Sinus rhythm . Nonspecific ST changes remain. PREVIOUS TRACING 12/20/2014 13.11 DOCTOR: Yaniv Platt Interpretating Date/Time 02/25/2017 16:14:28
--- NOTE | 2017-02-25 18:59 | RADRPT ---
EXAM DATE/TIME: 02/25/2017 15:59 [facility] COMPARISON: No previous studies available for comparison. INDICATIONS : Right hip pain, arthritis. MEDICAL HISTORY : Arthritis. SURGICAL HISTORY : None. ENCOUNTER: Initial ACUITY: >1 year PAIN SCORE: 10/10 LOCATION: Right hip. FINDINGS: The patient has a total hip prosthesis seen on the left side. The acetabular and femoral components a ppear well placed. There are cerclage wires around the proximal left femur with a supporting structur e seen at the left greater trochanter. There is severe degenerative change at the right hip joint wi th joint space narrowing seen superiorly and prominent osteophytes seen at the periphery of the femor al head especially at the inferior medial aspect of the femoral head. There is osteophyte formation at the lateral superior acetabulum on the right. There is some cystic change at the superior joint s pace. An acute fracture is not seen. The pubic symphyses appear normally aligned. There does appea r to be contrast within the urinary bladder. CONCLUSION: 1. Severe degenerative change at the right hip joint. 2. Status post total hip replacement on the left with the hardware appearing well placed. Kalen Ellis MD on February 25, 2017 at 18:19 Board Certified Radiologist. This report was verified electronically.
--- NOTE | 2017-02-25 20:53 | ECHRPT ---
Indication: Cardiomyopathy, unspecified CONCLUSIONS The left ventricular systolic function is normal with an estimated ejection fraction in the range of 60-65%. Normal left ventricular size. There is mild LV hypertrophy. Foawq-pt-[id number] mitral valve regurgitation. There is mild tricuspid valve regurgitation. There is estimated mild pulmonary hypertension present (range 40-50 mmHg). BP: / HR: Rhythm: MEASUREMENTS (Male / Female) Normal Values Technical Quality:Technically difficult study 2D ECHO LV Diastolic Diameter PLAX 5.5 cm 4.2 - 5.9 / 3.9 - 5.3 cm LV Systolic Diameter PLAX 3.9 cm IVS Diastolic Thickness 1.6 cm 0.6 - 1.0 / 0.6 - 0.9 cm LVPW Diastolic Thickness 1.1 cm 0.6 - 1.0 / 0.6 - 0.9 cm LV Relative Wall Thickness 0.5 RV Internal Dim ED PLAX 3.6 cm M-MODE Aortic Root Diameter MM 3.5 cm LA Systolic Diameter MM 3.7 cm LA Ao Ratio MM 1.1 AV Cusp Separation MM 1.5 cm DOPPLER TR Peak Velocity 293.0 cm/s TR Peak Gradient 34.3 mmHg FINDINGS LEFT VENTRICLE RIGHT VENTRICLE Normal right ventricular size and systolic function. LEFT ATRIUM The left atrial size is normal. RIGHT ATRIUM The right atrial size is normal. ATRIAL SEPTUM Normal atrial septal thickness without atrial level shunting by limited color doppler interrogation. AORTA The aortic root and proximal ascending aorta are normal in size on limited imaging. MITRAL VALVE Structurally normal mitral valve. Jwcoa-gi-[id number] mitral valve regurgitation. AORTIC VALVE Trileaflet aortic valve. No aortic valve regurgitation. No aortic valve stenosis. TRICUSPID VALVE Structurally normal tricuspid valve. There is mild tricuspid valve regurgitation. There is estimated mild pulmonary hypertension present (range 40-50 mmHg). PULMONARY VALVE The pulmonary valve is not well visualized. VESSELS The inferior vena cava is normal in size. PERICARDIUM No pericardial effusion. Gregoria Collazo MD, FACC (Electronically Signed) Final Date:25 February 2017 20:52
[2017-02-25] MEDS: cefTRIAXone INJ 1,000 MG in SODIUM CHLORIDE 0.9% INJ 100 ML IV SCH (22:03)
[2017-02-26] VITALS (8 sets, daily range): BP systolic 121–176; BP diastolic 64–85; PULSE 72–107; RESP 18–22; TEMP 97.1–98.7; O2SAT 93–96
[2017-02-26 06:33] LABS: BLOOD GAS BASE EXCESS 0.9 mmol/L (-2-2); BLOOD GAS CARBOXYHEMOGLOBIN 1.7 % (0-4); BLOOD GAS HCO3 25 mmol/L (22-26); BLOOD GAS METHEMOGLOBIN 0.7 % (0-2); BLOOD GAS O2 HGB SATURATION 87 % (90-100); BLOOD GAS OXYGEN CONTENT 18.5 Vol % (12.0-20.0); BLOOD GAS PCO2 37 mmHg (38-42); BLOOD GAS PO2 55 mmHg (61-120); BLOOD GAS TOTAL HGB 15.2 G/DL (12.0-16.0); TEMP CORR TO 98.6
[2017-02-26 06:34] LABS: CRITICAL VALUE YES; DRAW SITE RT RADIAL; NUMBER OF ARTERIAL PUNCTURES 1; OXYGEN DEVICE N; STAT NO; ULNAR PULSE PRESENT
[2017-02-26] MEDS: CLOPIDOGREL 75 MG TAB PO SCH (08:11)
[2017-02-26] MEDS: amLODIPine BESYLATE 5 MG TAB PO SCH (08:11)
[2017-02-26] MEDS: PRAVASTATIN SOD 40 MG TAB PO SCH (08:11)
[2017-02-26] MEDS: POTASSIUM CHLORIDE 20 MEQ CONTROLLED RELEASE TAB PO SCH (08:11)
[2017-02-26] MEDS: METOPROLOL TARTRATE 100 MG TAB PO SCH ×2 (08:11→20:13)
[2017-02-26] MEDS: FUROSEMIDE 20 MG TAB PO SCH (08:12)
[2017-02-26] MEDS: LISINOPRIL 20 MG TAB PO SCH (08:12)
--- NOTE | 2017-02-26 09:10 | RADRPT ---
EXAM DATE/TIME: 02/26/2017 08:41 [facility] COMPARISON: CHEST SINGLE AP, February 25, 2017, 9:37. INDICATIONS : Short of breath, weakness, evaluate congestive heart failure MEDICAL HISTORY : Cardiovascular disease. Hypertension A-fib SURGICAL HISTORY : Coronary artery stent. ENCOUNTER: Subsequent ACUITY: 2 days PAIN SCORE: 0/10 LOCATION: Bilateral chest FINDINGS: PA and lateral views of the chest demonstrate the lungs to be symmetrically aerated without evidence of mass or effusion. The cardiomediastinal contours are unremarkable. Osseous structures are intact . Overt vascular congestion CHF persists CONCLUSION: Persistent CHF without consolidated infiltrate Joshua Tyson MD on February 26, 2017 at 9:07 Board Certified Radiologist. This report was verified electronically.
--- NOTE | 2017-02-26 11:26 | HHI.PR ---
Subjective Remarks No new complaints. Objective Vitals Vital Signs Date Time Temp Pulse Resp B/P (MAP) Pulse Ox O2 Delivery O2 Flow Rate FiO2 02/26/17 08:20 86 02/26/17 08:00 98.6 83 20 176/80 (112) 94 02/26/17 04:00 98.2 107 18 121/85 (97) 93 02/26/17 00:00 98.0 86 22 121/64 (83) 93 02/25/17 23:00 80 02/25/17 20:40 97.9 87 19 127/60 (82) 95 02/25/17 20:00 99.5 66 22 134/78 (96) 97 02/25/17 18:11 95 02/25/17 17:00 86 02/25/17 15:30 98.0 87 20 144/87 (106) 93 02/25/17 15:00 96 02/25/17 14:01 90 02/25/17 13:00 96 02/25/17 11:15 98.2 82 20 144/89 (107) 92 02/25/17 11:00 87 Result Diagram: 02/25/17 0500 02/25/17 0500 Imaging Last Impressions Head CT 02/24/17 1821 Signed Impressions: Service Date/Time: Friday, February 24, 2017 18:41 - CONCLUSION: No acute intracranial abnormality demonstrated. Small, old right thalamic infarct. Kalen Simmons MD Chest X-Ray 02/24/17 1821 Signed Impressions: Service Date/Time: Friday, February 24, 2017 18:33 - CONCLUSION: 1. Diffuse bilateral pulmonary infiltrates consistent with moderate pulmonary edema versus pneumonia. Clinical correlation is recommended. 2. Cardiomegaly. 3. Degenerative changes throughout the thoracic spine. Adan Leon MD Toe X-Ray 02/24/17 0000 Signed Impressions: Service Date/Time: Friday, February 24, 2017 18:35 - CONCLUSION: No fracture or subluxation demonstrated of the great toe. Moderate to severe osteoarthritis in the first metatarsophalangeal joint and sesamoids. Kalen Simmons MD Lower Extremity Ultrasound 02/24/17 0000 Signed Impressions: Service Date/Time: Friday, February 24, 2017 23:13 - CONCLUSION: No DVT is identified within either lower extremity. Kalen Weiss MD Head Magnetic Resonance Angiography 02/24/17 0000 Signed Impressions: Service Date/Time: Friday, February 24, 2017 22:29 - CONCLUSION: No acute intracranial vascular abnormality is identified. Kalen Weiss MD Brain MRI 02/24/17 0000 Signed Impressions: Service Date/Time: Friday, February 24, 2017 22:29 - CONCLUSION: 1. No acute intracranial abnormality is identified. There are no findings to indicate recent ischemia. 2. Chronic changes include mild cerebral atrophy and periventricular white matter change characteristic of chronic microvascular ischemia. Kalen Weiss MD Objective Remarks GENERAL: This is a well-nourished, well-developed patient, in no apparent distress. CARDIOVASCULAR: Regular rate and rhythm without murmurs, gallops, or rubs. RESPIRATORY: Clear to auscultation. Breath sounds equal bilaterally. No wheezes , rales, or rhonchi. GASTROINTESTINAL: Abdomen soft, non-tender, nondistended. Normal active bowel sounds MUSCULOSKELETAL: Extremities without clubbing, cyanosis, or edema. NEURO: Alert & Oriented x4 to person, place, time, situation. Moves all ext x4 A/P Problem List: (1) SOB (shortness of breath) ICD Codes: R06.02 - Shortness of breath Status: Acute Plan: - Pt is 61 yo male with cad, ?afib,severe OA of right hip, untreated sleep apnea - presents with c/o sob. - Pt says he has been getting progressively sob for over 6 months - now is not only sob with exertion but even with rest and talking. - Per pt bench worker binding did an echo about 6m ago and apparently everything was ok. - Intentional weight lose of 50 pounds in order to get right SEA - Pt cough if he tries to drink fluids in bed - Taking up to 32 NSAIDs/day at times alleve/motrin x 9 months d/t right hip pain. Also prn ultram - cardiology changed brillinta to plavix - also c/o slurred speech and falling at home - Afib new - CXR (02/24/17) --> pulmonary edema - BMP (02/24/17) --> 330, 252 (02/25) - b/l doppler US (02/24/17) --> negative for DVT - Pt received lasix in the ER --> diuresed 1,800ml - Pt with hypoalbumenemia - echocardiogram done --> EF 55-60% - CTA chest (02/25/17) --> non-specific interstitial disease upper lobes - continue lasix at 20mg daily - suspect untreated WESLEY is contributing - ABG (02/26/17), not hypercapnic, some hypoxia - suspect presenting pt's dyspnea is d/t deconditioning, obesity, and WESLEY - continue lasix 20mg for now - will need outpt sleep apnea testing - anticipate d/c to home in next 1-2 days (2) Fall at home ICD Codes: W19.XXXA - Unspecified fall, initial encounter; Y92.099 - Unspecified place in other non-institutional residence as the place of occurrence of the external cause Plan: - neuroimaging studies are negative, see above - pt with right hip OA & trying to loose weight for sugery - PT, ambulation limited d/t right hip pain (3) Slurred speech ICD Codes: R47.81 - Slurred speech Plan: - MRI brain (02/24/17) --> NO acute findings - MRA brain (02/24/17) --> NO acute findings - CT brain (02/24/17) --> NO acute findings - Speech Therapy evaluation --> pending - TSH, free T4, folate, ammonia, RPR --> WNL (4) Osteoarthritis of right hip ICD Codes: M16.11 - Unilateral primary osteoarthritis, right hip Plan: - excessive use of NSAIDs, see HPI - right hip x-ray --> severe OA - f/u with Orthopedist, Dr. Clemens, outpt for consideration of right SEA (5) Afib ICD Codes: I48.91 - Unspecified atrial fibrillation Status: Acute Plan: - case d/w pt's Certified Appliance Service Technician, Dr. Martinez (02/25/17) - No prior h/o A.Fib - continue metoprolol - start Eliquis 5mg BID - f/u with Dr. Martinez, outpt (6) CAD (coronary artery disease) ICD Codes: I25.10 - Coronary artery disease Status: Chronic Plan: - metoprolol, lisinopril - brillinta changed to plavix - plavix non-responder? (7) CVA (cerebral vascular accident) ICD Codes: I63.9 - CVA (cerebral vascular accident) Status: Chronic (8) Hypertension ICD Codes: I10 - Hypertension Status: Chronic Plan: - metoprolol, lisinopril (9) WESLEY (obstructive sleep apnea) ICD Codes: G47.33 - Obstructive sleep apnea (adult) (pediatric) Status: Chronic Plan: - pt states that he snores loudly - pt has NOT had w/u for WESLEY - obtain AM ABG - following hospitalization, pt will need outpt testing. Problem Qualifiers (1) Osteoarthritis of right hip: Qualified Codes: M16.11 - Unilateral primary osteoarthritis, right hip (2) CAD (coronary artery disease): Qualified Codes: I25.10 - Atherosclerotic heart disease of [place] coronary artery without angina pectoris (3) Hypertension: Qualified Codes: I10 - Essential (primary) hypertension Derek Adams DO Feb 26, 2017 11:26
[2017-02-26] MEDS: APIXABAN 5 MG TABLET PO SCH ×2 (12:17→20:13)
[2017-02-26] MEDS: traMADol HCL 50 MG TAB PO PRN ×2 (12:17→17:36)
[2017-02-26 15:32] LABS: BICARBONATE 26.6 MEQ/L (21.0-32.0); MAGNESIUM 2.3 MG/DL (1.5-2.5); POTASSIUM 3.2 MEQ/L (3.5-5.1)
[2017-02-26 15:36] LABS: AUTOMATED NEUTROPHIL # 12.3 TH/MM3 (1.8-7.7); BASOPHIL # 0.1 TH/MM3 (0-0.2); BASOPHIL % 0.4 % (0.0-2.0); EOSINOPHIL # 0.1 TH/MM3 (0-0.4); EOSINOPHIL % 0.8 % (0.0-4.0); LYMPH % 9.4 % (9.0-44.0); LYMPHOCYTE # 1.4 TH/MM3 (1.0-4.8); MEAN CELL VOLUME 84.6 FL (80.0-100.0); MEAN CORPUSCULAR HEMOGLOBIN 27.6 PG (27.0-34.0); MEAN CORPUSCULAR HGB CONC 32.6 % (32.0-36.0); MONO % 7.3 % (0.0-8.0); NEUT % 82.1 % (16.0-70.0); PLATELET COUNT 310 TH/MM3 (150-450); RED BLOOD COUNT 4.37 MIL/MM3 (4.50-5.90); RED CELL DISTRIBUTION WIDTH 15.8 % (11.6-17.2)
[2017-02-26 15:45] LABS: HEMO FLAGS AUTO DIFF
[2017-02-26 16:32] LABS: BANDS 4 % (0-6); METAMYELOCYTES 1 % (0-1); NEUTROPHIL # MANUAL DIFF 13.5 TH/MM3 (1.8-7.7); PLASMA CELLS 2 % (0-0); POLYS (SEG NEUTROPHILS) 83 % (16-70); PROMYELOCYTES 2 % (0-0); WBC DIFF SAMPLE 100
[2017-02-26 16:33] LABS: PLATELET ESTIMATE SMEAR NORMAL (NORMAL); PLATELET MORPHOLOGY NORMAL (NORMAL); SCAN/DIFF FINAL DIFF MANUAL
--- NOTE | 2017-02-26 18:46 | PD.CONS ---
History of Present Illness Service Neurology Consult Requested By medical Reason for Consult speech changes Primary Care Physician Tai Cook MD History of Present Illness 61 yo male admitted for dyspnea and le weakness. both have improved. was diuresed in er. has been having slurred speech off/on past few days. improved with hydration. he states he had a previous stroke which affected his speech. denies any focal weakness. denies ptosis, diplopia. mri brain negative for acute stroke. found to be in afib and has been started on eliquis. chronic gait d/o uses a walker/cane 2/2 hip arthritis. hx of snoring, coughing in his sleep. has not been tested for sleep apnea. Review of Systems as above and admit hp Past Family Social History Past Medical History cad, 2015 RCA stent htn old [place]un[place] cva hyperlipidemia severe OA right hip Hx left SEA Reported Home Medications Furosemide 20 Mg Tab 20 Mg PO DAILY prn Metoprolol Tartrate 100 Mg Tab 100 Mg PO BID Amlodipine (Amlodipine Besylate) 5 Mg Tab 5 Mg PO DAILY Clopidogrel (Clopidogrel Bisulfate) 75 Mg Tab 75 Mg PO DAILY Pravastatin 40 Mg Tab 40 Mg PO DAILY Lisinopril 40 Mg Tab 40 Mg PO DAILY ASA. Allergies: Coded Allergies: ciprofloxacin (Unverified Allergy, Severe, 02/12/17) levofloxacin (Unverified Allergy, Severe, 02/12/17) morphine (Unverified Allergy, Severe, Nausea/Vomiting, 02/12/17) Family History nc Social History no tob occ etoh Review of Systems All other ROS: ROS reviewed as documented in chart Past Family Social History Allergies: Coded Allergies: ciprofloxacin (Unverified Allergy, Severe, 02/12/17) levofloxacin (Unverified Allergy, Severe, 02/12/17) morphine (Unverified Allergy, Severe, Nausea/Vomiting, 02/12/17) Active Ordered Medications Current Medications Medications (Trade) Dose Ordered Sig/Meagan Route Start Time Stop Time Status Last Admin (NS Flush) 2 ml UNSCH PRN IV FLUSH 02/24/17 18:30 (Ultram) 50 mg Q4H PRN PO 02/24/17 21:30 02/26/17 17:36 (Norvasc) 5 mg DAILY PO 02/25/17 09:00 02/26/17 08:11 (Plavix) 75 mg DAILY PO 02/25/17 09:00 02/26/17 08:11 (Lopressor) 100 mg BID PO 02/25/17 09:00 02/26/17 08:11 (Pravachol) 40 mg DAILY PO 02/25/17 09:00 02/26/17 08:11 (Prinivil) 40 mg DAILY PO 02/25/17 09:00 02/26/17 08:12 Ceftriaxone Sodium 1000 mg/ Sodium Chloride 100 ml @ 200 mls/hr Q24H IV 02/24/17 22:00 02/25/17 22:03 (Lasix) 20 mg DAILY PO 02/25/17 11:00 02/26/17 08:12 (KCl) 20 meq DAILY PO 02/26/17 09:00 02/26/17 08:11 (Eliquis) 5 mg BID PO 02/26/17 11:30 02/26/17 12:17 Exam I&O / VS 02/26/17 02/26/17 02/27/17 15:00 23:00 07:00 Intake Total 240 ml Output Total 750 ml Balance -510 ml Intake Oral 240 ml Output Urine Total 750 ml # Bowel Movements 0 Vital Signs Date Time Temp Pulse Resp B/P (MAP) Pulse Ox O2 Delivery O2 Flow Rate FiO2 02/26/17 16:00 97.1 91 20 163/75 (104) 96 02/26/17 12:00 98.7 72 20 148/85 (106) 96 02/26/17 09:10 96 Nasal Cannula 3.00 02/26/17 08:20 86 02/26/17 08:00 98.6 83 20 176/80 (112) 94 02/26/17 04:00 98.2 107 18 121/85 (97) 93 02/26/17 00:00 98.0 86 22 121/64 (83) 93 02/25/17 23:00 80 02/25/17 20:40 97.9 87 19 127/60 (82) 95 02/25/17 20:00 99.5 66 22 134/78 (96) 97 General: Alert and Oriented Eye: EOMI Respiratory: Non-labored respirations Neurologic: Alert, Oriented Psychiatric: Cooperative Exam Comments ox 3, had mild slurred speech initially, drank water and articulation improved, eomi, mild reduced rt nlf, eomi, vff, no ptosis, mild hip flexor weakness, able to raise all 4 ext to gravity, msr 1+ sym, no clonus, planter flexor response Review/Management Diagnosis/Plan: (1) Slurred speech ICD Codes: R47.81 - Slurred speech Plan: exacerbation of previous stroke deficits by current clinical condition other etiologies: myasthenia, oropharyngeal muscular weakness/neuropathy chronic gait d/o 2/2 hip arthritis recs check mg abs- f/u outpatient consider ent eval of upper airway- outpatient outpatient sleep studies at our center- d/w pt and partner- agree with plan outpatient f/u in 1-2 weeks wt loss/exercise (2) WESLEY (obstructive sleep apnea) ICD Codes: G47.33 - Obstructive sleep apnea (adult) (pediatric) Status: Chronic Plan: outpatient sleep study with us pt agrees (3) Afib ICD Codes: I48.91 - Unspecified atrial fibrillation Status: Acute Plan: on eliquis (4) New onset of congestive heart failure ICD Codes: I50.9 - Heart failure, unspecified Status: Acute Jani Kern MD Feb 26, 2017 18:46
[2017-02-26] MEDS: cefTRIAXone INJ 1,000 MG in SODIUM CHLORIDE 0.9% INJ 100 ML IV SCH (22:17)
[2017-02-27] VITALS (8 sets, daily range): BP systolic 119–156; BP diastolic 64–91; PULSE 65–85; RESP 18–20; TEMP 97.2–99.5; O2SAT 92–97
[2017-02-27] MEDS: APIXABAN 5 MG TABLET PO SCH ×2 (09:40→21:17)
[2017-02-27] MEDS: traMADol HCL 50 MG TAB PO PRN ×4 (09:40→23:34)
[2017-02-27] MEDS: LISINOPRIL 20 MG TAB PO SCH (09:41)
[2017-02-27] MEDS: PRAVASTATIN SOD 40 MG TAB PO SCH (09:41)
[2017-02-27] MEDS: POTASSIUM CHLORIDE 20 MEQ CONTROLLED RELEASE TAB PO SCH (09:41)
[2017-02-27] MEDS: METOPROLOL TARTRATE 100 MG TAB PO SCH ×2 (09:41→21:17)
[2017-02-27] MEDS: amLODIPine BESYLATE 5 MG TAB PO SCH (09:41)
[2017-02-27] MEDS: CLOPIDOGREL 75 MG TAB PO SCH (09:41)
[2017-02-27] MEDS: FUROSEMIDE 20 MG TAB PO SCH (09:41)
--- NOTE | 2017-02-27 16:44 | HHI.PR ---
Subjective Remarks Pt was seen by ST and they felt that his speech was stable. Pt without any new complaints. He feels that the speech is better today Pt is able to stand up unassisted today Urine is still dark Objective Vitals Vital Signs Date Time Temp Pulse Resp B/P (MAP) Pulse Ox O2 Delivery O2 Flow Rate FiO2 02/27/17 12:00 98.5 78 20 145/78 (100) 95 02/27/17 08:20 75 02/27/17 08:00 97.9 82 18 136/84 (101) 92 02/27/17 04:00 98.2 67 18 119/83 (95) 94 02/27/17 00:00 97.2 65 18 126/64 (84) 97 02/26/17 20:00 103 02/26/17 20:00 98.6 86 20 134/84 (101) 96 Result Diagram: 02/26/17 1427 02/26/17 1427 Other Results Laboratory Tests Test 02/26/17 06:18 02/26/17 14:27 02/27/17 07:22 Blood Gas Puncture Site RT RADIAL Blood Gas Patient Temperature 98.6 Blood Gas HCO3 25 mmol/L Blood Gas Base Excess 0.9 mmol/L Blood Gas Oxygen Saturation 87 % Arterial Blood pH 7.44 Arterial Blood Partial Pressure CO2 37 mmHg Arterial Blood Partial Pressure O2 55 mmHg Arterial Blood Oxygen Content 18.5 Vol % Arterial Blood Carboxyhemoglobin 1.7 % Arterial Blood Methemoglobin 0.7 % Blood Gas Hemoglobin 15.2 G/DL Oxygen Delivery Device N White Blood Count 15.0 TH/MM3 Red Blood Count 4.37 MIL/MM3 Hemoglobin 12.1 GM/DL Hematocrit 37.0 % Mean Corpuscular Volume 84.6 FL Mean Corpuscular Hemoglobin 27.6 PG Mean Corpuscular Hemoglobin Concent 32.6 % Red Cell Distribution Width 15.8 % Platelet Count 310 TH/MM3 Mean Platelet Volume 8.1 FL Neutrophils (%) (Auto) 82.1 % Lymphocytes (%) (Auto) 9.4 % Monocytes (%) (Auto) 7.3 % Eosinophils (%) (Auto) 0.8 % Basophils (%) (Auto) 0.4 % Neutrophils # (Auto) 12.3 TH/MM3 Lymphocytes # (Auto) 1.4 TH/MM3 Monocytes # (Auto) 1.1 TH/MM3 Eosinophils # (Auto) 0.1 TH/MM3 Basophils # (Auto) 0.1 TH/MM3 CBC Comment AUTO DIFF Differential Total Cells Counted 100 Neutrophils % (Manual) 83 % Band Neutrophils % 4 % Lymphocytes % 5 % Monocytes % 3 % Neutrophils # (Manual) 13.5 TH/MM3 Metamyelocytes 1 % Promyelocytes 2 % Differential Comment FINAL DIFF MANUAL Plasma Cells 2 % Platelet Estimate NORMAL Platelet Morphology Comment NORMAL Blood Urea Nitrogen 25 MG/DL Creatinine 0.91 MG/DL Random Glucose 145 MG/DL Calcium Level 8.7 MG/DL Magnesium Level 2.3 MG/DL Sodium Level 138 MEQ/L Potassium Level 3.2 MEQ/L Chloride Level 103 MEQ/L Carbon Dioxide Level 26.6 MEQ/L Anion Gap 8 MEQ/L Estimat Glomerular Filtration Rate 84 ML/MIN B-Type Natriuretic Peptide 231 PG/ML Erythrocyte Sedimentation Rate 73 mm/hr C-Reactive Protein 22.00 MG/DL Imaging Last Impressions Head CT 02/24/171820 Signed Impressions: Service Date/Time: Friday, February 24, 2017 18:41 - CONCLUSION: No acute intracranial abnormality demonstrated. Small, old right thalamic infarct. Kalen Simmons MD Chest X-Ray 02/24/171820 Signed Impressions: Service Date/Time: Friday, February 24, 2017 18:33 - CONCLUSION: 1. Diffuse bilateral pulmonary infiltrates consistent with moderate pulmonary edema versus pneumonia. Clinical correlation is recommended. 2. Cardiomegaly. 3. Degenerative changes throughout the thoracic spine. Adan Leon MD Toe X-Ray 02/24/17 0000 Signed Impressions: Service Date/Time: Friday, February 24, 2017 18:35 - CONCLUSION: No fracture or subluxation demonstrated of the great toe. Moderate to severe osteoarthritis in the first metatarsophalangeal joint and sesamoids. Kalen Simmons MD Lower Extremity Ultrasound 02/24/17 0000 Signed Impressions: Service Date/Time: Friday, February 24, 2017 23:13 - CONCLUSION: No DVT is identified within either lower extremity. Kalen Weiss MD Head Magnetic Resonance Angiography 02/24/17 0000 Signed Impressions: Service Date/Time: Friday, February 24, 2017 22:29 - CONCLUSION: No acute intracranial vascular abnormality is identified. Kalen Weiss MD Brain MRI 02/24/17 0000 Signed Impressions: Service Date/Time: Friday, February 24, 2017 22:29 - CONCLUSION: 1. No acute intracranial abnormality is identified. There are no findings to indicate recent ischemia. 2. Chronic changes include mild cerebral atrophy and periventricular white matter change characteristic of chronic microvascular ischemia. Kalen Weiss MD Objective Remarks General: NAD, AAOx3 Chest: CTA Cardiac: Regular Abd: +BS, soft ND/NT Ext: Mild bilateral LE edema A/P Problem List: (1) SOB (shortness of breath) ICD Codes: R06.02 - Shortness of breath Status: Acute Plan: - Pt is 61 yo male with cad, severe OA of right hip, untreated sleep apnea - presents with c/o sob. - Pt says he has been getting progressively sob for over 6 months but now is not only sob with exertion but even with rest and talking. - Per pt speech and hearing clinic director did an echo about 6m ago and apparently everything was ok. - Intentional weight loss of 50 pounds in order to get right SEA - Pt cough if he tries to drink fluids in bed - Taking up to 32 NSAIDs/day at times Aleve/Motrin x 9 months d/t right hip pain. Also prn Ultram - cardiology changed Brilinta to Plavix - also c/o slurred speech and falling at home - Afib new - CXR (02/24/17) --> pulmonary edema - BMP (02/24/17) --> 330, 252 (02/25) - b/l doppler US (02/24/17) --> negative for DVT - Pt received Lasix in the ER --> diuresed 1,800ml - Pt with hypoalbuminemia - echocardiogram done --> EF 55-60% - CTA chest (02/25/17) --> non-specific interstitial disease upper lobes - continue Lasix at 20mg daily - suspect untreated WESLEY is contributing - ABG (02/26/17), not hypercapnic, some hypoxia - suspect presenting pt's dyspnea is d/t deconditioning, obesity, and untreated WESLEY - continue Lasix 20mg for now - Pt will need outpt sleep apnea testing - anticipate d/c to home in next 1-2 days (2) Fall at home ICD Codes: W19.XXXA - Unspecified fall, initial encounter; Y92.099 - Unspecified place in other non-institutional residence as the place of occurrence of the external cause Plan: - neuroimaging studies are negative, see above - pt with right hip OA & trying to loose weight for surgery - PT, ambulation limited d/t right hip pain (3) Slurred speech ICD Codes: R47.81 - Slurred speech Plan: - MRI brain (02/24/17) --> NO acute findings - MRA brain (02/24/17) --> NO acute findings - CT brain (02/24/17) --> NO acute findings - Speech Therapy evaluation --> pending - TSH, free T4, folate, ammonia, RPR --> WNL - Appreciate Neurology consultation - Neurology felt that this could have been secondary to exacerbation of previous stroke deficits by current clinical condition. Other etiologies include myasthenia, oropharyngeal muscular weakness/neuropathy - Mg abs pending, to be followed up on as an outpt with Neurology (4) Osteoarthritis of right hip ICD Codes: M16.11 - Unilateral primary osteoarthritis, right hip Plan: - excessive use of NSAIDs, see HPI - right hip x-ray --> severe OA - f/u with Orthopedist, Dr. Clemens, outpt for consideration of right SEA (5) Afib ICD Codes: I48.91 - Unspecified atrial fibrillation Status: Acute Plan: - case d/w pt's Diagnostic Technologist, Dr. Martinez (02/25/17) - No prior h/o A.Fib - continue metoprolol - start Eliquis 5mg BID - f/u with Dr. Martinez, outpt (6) UTI (urinary tract infection) ICD Codes: N39.0 - Urinary tract infection, site not specified Plan: - Pt noted to have an E. coli UTI from UA at admission. - Pt has been on Rocephin. - Change to PO Macrobid 100mg po BID - recheck UA as urine is still dark and appears to be a bit bloody - If UA still very abnormal with a lot of red cells then may need to get a renal US (7) CAD (coronary artery disease) ICD Codes: I25.10 - Coronary artery disease Status: Chronic Plan: - metoprolol, lisinopril - brillinta changed to plavix - plavix non-responder? (8) CVA (cerebral vascular accident) ICD Codes: I63.9 - CVA (cerebral vascular accident) Status: Chronic (9) Hypertension ICD Codes: I10 - Hypertension Status: Chronic Plan: - metoprolol, lisinopril (10) WESLEY (obstructive sleep apnea) ICD Codes: G47.33 - Obstructive sleep apnea (adult) (pediatric) Status: Chronic Plan: - pt states that he snores loudly - pt has NOT had w/u for WESLEY - following hospitalization, pt will need outpt testing. Assessment and Plan Patient examined. Assessment and plan formulated with Cecelia Weir PA-C. I agree with the above. await repeat UA/Cx consider US kidney, bladder, ureters if still with hematuria continue to treat UTI Problem Qualifiers (1) Osteoarthritis of right hip: Qualified Codes: M16.11 - Unilateral primary osteoarthritis, right hip (2) CAD (coronary artery disease): Qualified Codes: I25.10 - Atherosclerotic heart disease of [place] coronary artery without angina pectoris (3) Hypertension: Qualified Codes: I10 - Essential (primary) hypertension Cecelia Weir Feb 27, 2017 16:44 Derek Adams DO Feb 28, 2017 00:13
[2017-02-27] MEDS ORDERED: POLYETHYLENE GLYCOL 17 GM PKG PO ONE (17:00)
[2017-02-27] MEDS ORDERED: NITROFURANTOIN MONOHYD MACROCR 100 MG CAP PO SCH (18:00)
[2017-02-28] VITALS (7 sets, daily range): BP systolic 126–157; BP diastolic 63–90; PULSE 74–89; RESP 18–22; TEMP 97.8–98.5; O2SAT 92–97
[2017-02-28] MEDS: traMADol HCL 50 MG TAB PO PRN ×4 (06:01→20:38)
[2017-02-28 07:50] LABS: BLOOD, URINE SMALL (NEG); COMMENT (UR) CULTURE INDICATED; CULTURE IF INDICATED CULTURE INDICATED; GLUCOSE,URINE NEG (NEG); KETONE, URINE NEG (NEG); NITRITE,URINE NEG (NEG); PH, URINE 6.5 (5.0-8.5); SQUAMOUS EPITHELIAL CELL URINE <1 /hpf (0-5)
[2017-02-28 07:57] LABS: URINE COLOR ORANGE (YELLW/STRAW)
[2017-02-28] MEDS: FUROSEMIDE 20 MG TAB PO SCH (09:05)
[2017-02-28] MEDS: SULFAMETHOXAZOLE-TRIMETHOPRIM DS 800-160 MG TAB PO SCH ×2 (09:05→20:39)
[2017-02-28] MEDS: CLOPIDOGREL 75 MG TAB PO SCH (09:05)
[2017-02-28] MEDS: PRAVASTATIN SOD 40 MG TAB PO SCH (09:05)
[2017-02-28] MEDS: LISINOPRIL 20 MG TAB PO SCH (09:05)
[2017-02-28] MEDS: METOPROLOL TARTRATE 100 MG TAB PO SCH ×2 (09:05→20:39)
[2017-02-28] MEDS: POTASSIUM CHLORIDE 20 MEQ CONTROLLED RELEASE TAB PO SCH (09:05)
[2017-02-28] MEDS: POLYETHYLENE GLYCOL 17 GM PKG PO PRN (09:06)
[2017-02-28] MEDS: amLODIPine BESYLATE 5 MG TAB PO SCH (09:06)
[2017-02-28] MEDS: APIXABAN 5 MG TABLET PO SCH ×2 (09:06→20:39)
[2017-02-28 12:08] LABS: TOTAL BILIRUBIN ADULT 2.4 MG/DL (0.2-1.0)
[2017-02-28 12:19] LABS: INDIRECT BILIRUBIN 1.1 MG/DL (0.0-0.8)
--- NOTE | 2017-02-28 15:01 | HHI.PR ---
Subjective Remarks c/o continued dark urine Objective Vitals Vital Signs Date Time Temp Pulse Resp B/P (MAP) Pulse Ox O2 Delivery O2 Flow Rate FiO2 02/28/17 12:00 98.1 76 20 142/90 (107) 94 02/28/17 10:59 18 02/28/17 08:00 97.8 82 18 136/83 (100) 92 02/28/17 04:00 98.0 74 20 126/63 (84) 93 02/28/17 00:00 98.1 89 20 157/76 (103) 95 02/27/17 20:05 78 02/27/17 20:00 98.1 85 20 156/79 (104) 96 02/27/17 16:00 99.5 84 20 143/91 (108) 96 Result Diagram: 02/26/17 1427 02/26/17 1427 Imaging Last Impressions Chest X-Ray 02/26/17 0800 Signed Impressions: Service Date/Time: Sunday, February 26, 2017 08:41 - CONCLUSION: Persistent CHF without consolidated infiltrate Joshua Tyson MD Hip and Pelvis X-Ray 02/25/17 0000 Signed Impressions: Service Date/Time: Saturday, February 25, 2017 15:59 - CONCLUSION: 1. Severe degenerative change at the right hip joint. 2. Status post total hip replacement on the left with the hardware appearing well placed. Kalen Ellis MD CT Angiography 02/25/17 0000 Signed Impressions: Service Date/Time: Saturday, February 25, 2017 11:48 - CONCLUSION: Patchy peripheral airspace disease nonspecific mediastinal adenopathy. Airspace disease can be acute or chronic. Ayo Brantley MD FACR Head CT 02/24/17 1821 Signed Impressions: Service Date/Time: Friday, February 24, 2017 18:41 - CONCLUSION: No acute intracranial abnormality demonstrated. Small, old right thalamic infarct. Kalen Simmons MD Toe X-Ray 02/24/17 0000 Signed Impressions: Service Date/Time: Friday, February 24, 2017 18:35 - CONCLUSION: No fracture or subluxation demonstrated of the great toe. Moderate to severe osteoarthritis in the first metatarsophalangeal joint and sesamoids. Kalen Simmons MD Lower Extremity Ultrasound 02/24/17 0000 Signed Impressions: Service Date/Time: Friday, February 24, 2017 23:13 - CONCLUSION: No DVT is identified within either lower extremity. Kalen Weiss MD Head Magnetic Resonance Angiography 02/24/17 0000 Signed Impressions: Service Date/Time: Friday, February 24, 2017 22:29 - CONCLUSION: No acute intracranial vascular abnormality is identified. Kalen Weiss MD Brain MRI 02/24/17 0000 Signed Impressions: Service Date/Time: Friday, February 24, 2017 22:29 - CONCLUSION: 1. No acute intracranial abnormality is identified. There are no findings to indicate recent ischemia. 2. Chronic changes include mild cerebral atrophy and periventricular white matter change characteristic of chronic microvascular ischemia. Kalen Weiss MD Objective Remarks General: NAD, AAOx3 Chest: CTA Cardiac: Regular Abd: +BS, soft ND/NT Ext: Mild bilateral LE edema A/P Problem List: (1) UTI (urinary tract infection) ICD Codes: N39.0 - Urinary tract infection, site not specified Plan: - Pt noted to have an E. coli UTI from UA at admission. - bactrim - urine shows elevated urobilinogen - no indication of hemolysis - ?liver disease, anticipate that pt may have some degree of hepatosteatosis - obtain liver US - obtain hepatitis panel - repeat CBC - anticipate d/c to home 03/01 (2) SOB (shortness of breath) ICD Codes: R06.02 - Shortness of breath Status: Acute Plan: - Pt is 61 yo male with cad, severe OA of right hip, untreated sleep apnea - presents with c/o sob. - Pt says he has been getting progressively sob for over 6 months but now is not only sob with exertion but even with rest and talking. - Per pt appraiser irrigation tax did an echo about 6m ago and apparently everything was ok. - Intentional weight loss of 50 pounds in order to get right SEA - Pt cough if he tries to drink fluids in bed - Taking up to 32 NSAIDs/day at times Aleve/Motrin x 9 months d/t right hip pain. Also prn Ultram - cardiology changed Brilinta to Plavix - also c/o slurred speech and falling at home - Afib new - CXR (02/24/17) --> pulmonary edema - BMP (02/24/17) --> 330, 252 (02/25) - b/l doppler US (02/24/17) --> negative for DVT - Pt received Lasix in the ER --> diuresed 1,800ml - Pt with hypoalbuminemia - echocardiogram done --> EF 55-60% - CTA chest (02/25/17) --> non-specific interstitial disease upper lobes - continue Lasix at 20mg daily - suspect untreated WESLEY is contributing - ABG (02/26/17), not hypercapnic, some hypoxia - suspect presenting pt's dyspnea is d/t deconditioning, obesity, and untreated WESLEY - continue Lasix 20mg for now - Pt will need outpt sleep apnea testing - anticipate d/c to home in next 1-2 days (3) Fall at home ICD Codes: W19.XXXA - Unspecified fall, initial encounter; Y92.099 - Unspecified place in other non-institutional residence as the place of occurrence of the external cause Plan: - neuroimaging studies are negative, see above - pt with right hip OA & trying to loose weight for surgery - PT, ambulation limited d/t right hip pain (4) Slurred speech ICD Codes: R47.81 - Slurred speech Plan: - MRI brain (02/24/17) --> NO acute findings - MRA brain (02/24/17) --> NO acute findings - CT brain (02/24/17) --> NO acute findings - Speech Therapy evaluation --> pending - TSH, free T4, folate, ammonia, RPR --> WNL - Appreciate Neurology consultation - Neurology felt that this could have been secondary to exacerbation of previous stroke deficits by current clinical condition. Other etiologies include myasthenia, oropharyngeal muscular weakness/neuropathy - Mg abs pending, to be followed up on as an outpt with Neurology (5) Osteoarthritis of right hip ICD Codes: M16.11 - Unilateral primary osteoarthritis, right hip Plan: - excessive use of NSAIDs, see HPI - right hip x-ray --> severe OA - f/u with Orthopedist, Dr. 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 Martinez (02/25/17) - No prior h/o A.Fib - continue metoprolol - start Eliquis 5mg BID - f/u with Dr. Martinez outpt (7) CAD (coronary artery disease) ICD Codes: I25.10 - Coronary artery disease Status: Chronic Plan: - metoprolol, lisinopril - brillinta changed to plavix - plavix non-responder? (8) CVA (cerebral vascular accident) ICD Codes: I63.9 - CVA (cerebral vascular accident) Status: Chronic (9) Hypertension ICD Codes: I10 - Hypertension Status: Chronic Plan: - metoprolol, lisinopril (10) WESLEY (obstructive sleep apnea) ICD Codes: G47.33 - Obstructive sleep apnea (adult) (pediatric) Status: Chronic Plan: - pt states that he snores loudly - pt has NOT had w/u for WESLEY - following hospitalization, pt will need outpt testing. Problem Qualifiers (1) Osteoarthritis of right hip: Qualified Codes: M16.11 - Unilateral primary osteoarthritis, right hip (2) Afib: Qualified Codes: I48.91 - Unspecified atrial fibrillation (3) CAD (coronary artery disease): Qualified Codes: I25.10 - Atherosclerotic heart disease of [place] coronary artery without angina pectoris (4) Hypertension: Qualified Codes: I10 - Essential (primary) hypertension Derek Adams DO Feb 28, 2017 15:01
[2017-02-28] MEDS ORDERED: BISACODYL 10 MG SUPP RECTAL PRN (16:15)
[2017-02-28] MEDS ORDERED: SOD PHOSPHATE/SOD BIPHOSPHATE (ADULT) ENEMA 133ML RECTAL PRN (16:15)
[2017-02-28 21:39] LABS: AUTOMATED NEUTROPHIL # 12.6 TH/MM3 (1.8-7.7); BASOPHIL # 0.1 TH/MM3 (0-0.2); BASOPHIL % 0.6 % (0.0-2.0); EOSINOPHIL # 0.2 TH/MM3 (0-0.4); EOSINOPHIL % 1.4 % (0.0-4.0); HEMATOCRIT 39.7 % (39.0-51.0); LYMPH % 13.1 % (9.0-44.0); LYMPHOCYTE # 2.1 TH/MM3 (1.0-4.8); MEAN CELL VOLUME 85.2 FL (80.0-100.0); MEAN CORPUSCULAR HEMOGLOBIN 27.7 PG (27.0-34.0); MEAN CORPUSCULAR HGB CONC 32.5 % (32.0-36.0); MONO % 6.7 % (0.0-8.0); NEUT % 78.2 % (16.0-70.0); PLATELET COUNT 421 TH/MM3 (150-450); RED BLOOD COUNT 4.66 MIL/MM3 (4.50-5.90); RED CELL DISTRIBUTION WIDTH 16.2 % (11.6-17.2); WHITE BLOOD COUNT 16.1 TH/MM3 (4.0-11.0)
[2017-02-28 21:46] LABS: HEMO FLAGS AUTO DIFF
[2017-02-28 22:12] LABS: MAGNESIUM 2.2 MG/DL (1.5-2.5); POTASSIUM 3.8 MEQ/L (3.5-5.1)
--- NOTE | 2017-02-28 22:28 | RADRPT ---
EXAM DATE/TIME: 02/28/2017 21:14 [facility] COMPARISON: No previous studies available for comparison. INDICATIONS : Increased lab values. MEDICAL HISTORY : Hypertension. Atrial fibrillation. Asthma. Arthritis. Diabetes. SURGICAL HISTORY : Tonsillectomy. Appendectomy. Coronary stents. Left hip replacement. Right hip surgery. ENCOUNTER: Initial ACUITY: 1 day PAIN SCORE: 0/10 LOCATION: Bilateral upper quadrant MEASUREMENTS: LIVER: 18.7 cm length COMMON DUCT: 4 mm RIGHT KIDNEY: 12.4 x 6.6 x 6.5 cm SPLEEN: 12.5 cm length FINDINGS: LIVER: Normal echotexture without focal lesion or ductal dilatation. The liver is upper limits of normal for size. COMMON DUCT: No intraluminal mass or stone visualized. GALLBLADDER: Gallstones are seen. Gallbladder wall is not thickened. PANCREAS: The visualized portions are within normal limits. RIGHT KIDNEY: No hydronephrosis, stone or mass. SPLEEN: No focal lesion. The spleen is upper limits of normal for size. CONCLUSION: Cholelithiasis. Kalen Ellis MD on February 28, 2017 at 22:25 Board Certified Radiologist. This report was verified electronically.
[2017-02-28 22:29] LABS: METAMYELOCYTES 5 % (0-1); MYELOCYTES 1 % (0-0); NEUTROPHIL # MANUAL DIFF 13.7 TH/MM3 (1.8-7.7); POLYS (SEG NEUTROPHILS) 79 % (16-70); SCAN/DIFF FINAL DIFF MANUAL; WBC DIFF SAMPLE 100
[2017-03-01] VITALS: BP 135/66; PULSE 76; RESP 20; TEMP 98.8; O2SAT 95
[2017-03-01] MEDS: traMADol HCL 50 MG TAB PO PRN ×4 (02:45→17:26)
[2017-03-01 04:00] VITALS: BP 135/75; PULSE 90; RESP 20; TEMP 98.6; O2SAT 96
[2017-03-01 08:00] VITALS: BP 154/81; PULSE 89; RESP 20; TEMP 98.3; O2SAT 91
[2017-03-01] MEDS: PRAVASTATIN SOD 40 MG TAB PO SCH (08:20)
[2017-03-01] MEDS: FUROSEMIDE 20 MG TAB PO SCH (08:20)
[2017-03-01] MEDS: CLOPIDOGREL 75 MG TAB PO SCH (08:20)
[2017-03-01] MEDS: SULFAMETHOXAZOLE-TRIMETHOPRIM DS 800-160 MG TAB PO SCH (08:20)
[2017-03-01] MEDS: POTASSIUM CHLORIDE 20 MEQ CONTROLLED RELEASE TAB PO SCH (08:20)
[2017-03-01] MEDS: LISINOPRIL 20 MG TAB PO SCH (08:20)
[2017-03-01] MEDS: amLODIPine BESYLATE 5 MG TAB PO SCH (08:21)
[2017-03-01] MEDS: POLYETHYLENE GLYCOL 17 GM PKG PO PRN (08:21)
[2017-03-01] MEDS: APIXABAN 5 MG TABLET PO SCH (08:21)
[2017-03-01] MEDS: METOPROLOL TARTRATE 100 MG TAB PO SCH (08:21)
[2017-03-01 12:00] VITALS: BP 125/68; PULSE 73; RESP 18; TEMP 97.9; O2SAT 92
--- NOTE | 2017-03-01 12:58 | HHI.DS ---
Discharge Summary Admission Date Feb 26, 2017 at 11:29 Discharge Date: Mar 01, 2017 Admitting Diagnosis possible chf (1) UTI (urinary tract infection) Diagnosis: Principal ICD Codes: N39.0 - Urinary tract infection, site not specified (2) SOB (shortness of breath) Diagnosis: Principal ICD Codes: R06.02 - Shortness of breath Status: Acute (3) Fall at home Diagnosis: Principal ICD Codes: W19.XXXA - Unspecified fall, initial encounter; Y92.099 - Unspecified place in other non-institutional residence as the place of occurrence of the external cause (4) Slurred speech Diagnosis: Principal ICD Codes: R47.81 - Slurred speech (5) Osteoarthritis of right hip Diagnosis: Principal ICD Codes: M16.11 - Unilateral primary osteoarthritis, right hip (6) Afib Diagnosis: Principal ICD Codes: I48.91 - Unspecified atrial fibrillation Status: Acute (7) CAD (coronary artery disease) Diagnosis: Secondary ICD Codes: I25.10 - Coronary artery disease Status: Chronic (8) CVA (cerebral vascular accident) Diagnosis: Secondary ICD Codes: I63.9 - CVA (cerebral vascular accident) Status: Chronic (9) Hypertension Diagnosis: Secondary ICD Codes: I10 - Hypertension Status: Chronic (10) WESLEY (obstructive sleep apnea) Diagnosis: Secondary ICD Codes: G47.33 - Obstructive sleep apnea (adult) (pediatric) Status: Chronic Brief History Pt is 61 yo male with cad, severe OA of right hip, untreated sleep apnea who presents with c/o sob. Pt says he has been getting progressively sob for over 6 months but now is not only sob with exertion but even with rest and talking. 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 Pt has been trying to lose weight in order to get a afia on the right and claims to have lost 50pounds. Says he coughs sometimes on fluids when trying to drink them in bed. No fevers or chills. no vomiting.or diarrhea. Denies any cp or pleurisy. Girlfriend and pt say he takes up to 32 total pills per day of alleve/motrin for past 9 months. Some days less and even some days he tries to take none. He was using some ultram as well. Pt says 6 months ago his brillinta was changed to plavix.. Daughter says she made him come in because he has been falling and even slurring his speech. Pt not clear if he carries a dx of afib but on telemetry in ED he is in Afib. ED gave lasix iv x 1. CBC/BMP: 02/28/17211402/28/172114 Significant Findings Laboratory Tests Test 02/26/17 14:27 02/27/17 06:00 02/27/17 07:22 02/28/17 11:37 White Blood Count 15.0 TH/MM3 (4.0-11.0) Red Blood Count 4.37 MIL/MM3 (4.50-5.90) Hemoglobin 12.1 GM/DL (13.0-17.0) Hematocrit 37.0 % (39.0-51.0) Neutrophils (%) (Auto) 82.1 % (16.0-70.0) Neutrophils # (Auto) 12.3 TH/MM3 (1.8-7.7) Monocytes # (Auto) 1.1 TH/MM3 (0-0.9) Neutrophils % (Manual) 83 % (16-70) Lymphocytes % 5 % (9-44) Neutrophils # (Manual) 13.5 TH/MM3 (1.8-7.7) Promyelocytes 2 % (0-0) Plasma Cells 2 % (0-0) Blood Urea Nitrogen 25 MG/DL (7-18) Random Glucose 145 MG/DL (74-106) Potassium Level 3.2 MEQ/L (3.5-5.1) Estimat Glomerular Filtration Rate 84 ML/MIN (>89) B-Type Natriuretic Peptide 231 PG/ML (0-100) Urine Color ORANGE (YELLW/STRAW) Urine Occult Blood SMALL (NEG) Urine Bilirubin SMALL (NEG) Urine Urobilinogen GREATER THAN 12.0 MG/DL Urine Leukocyte Esterase SMALL (NEG) Urine RBC 11 /hpf (0-3) Urine WBC 26 /hpf (0-5) Erythrocyte Sedimentation Rate 73 mm/hr (0-20) C-Reactive Protein 22.00 MG/DL (0.00-0.30) Total Bilirubin 2.4 MG/DL (0.2-1.0) Direct Bilirubin 1.3 MG/DL (0.0-0.2) Indirect Bilirubin 1.1 MG/DL (0.0-0.8) Aspartate Amino Transf (AST/SGOT) 75 U/L (15-37) Alkaline Phosphatase 184 U/L (45-117) Albumin 1.8 GM/DL (3.4-5.0) Test 02/28/17 21:15 White Blood Count 16.1 TH/MM3 (4.0-11.0) Hemoglobin 12.9 GM/DL (13.0-17.0) Neutrophils (%) (Auto) 78.2 % (16.0-70.0) Neutrophils # (Auto) 12.6 TH/MM3 (1.8-7.7) Monocytes # (Auto) 1.1 TH/MM3 (0-0.9) Neutrophils % (Manual) 79 % (16-70) Neutrophils # (Manual) 13.7 TH/MM3 (1.8-7.7) Metamyelocytes 5 % (0-1) Myelocytes 1 % (0-0) Blood Urea Nitrogen 23 MG/DL (7-18) Sodium Level 135 MEQ/L (136-145) PE at Discharge General: NAD, AAOx3 Chest: CTA Cardiac: Regular Abd: +BS, soft ND/NT Ext: Mild bilateral LE edema Hospital Course (1) SOB (shortness of breath) ICD Codes: R06.02 - Shortness of breath Status: Acute Plan: - Pt is 61 yo male with cad, severe OA of right hip, untreated sleep apnea - presents with c/o sob. - Pt says he has been getting progressively sob for over 6 months but now is not only sob with exertion but even with rest and talking. 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 - Intentional weight loss of 50 pounds in order to get right AFIA - Pt cough if he tries to drink fluids in bed - Taking up to 32 NSAIDs/day at times Aleve/Motrin x 9 months d/t right hip pain. Also prn Ultram - cardiology changed Brilinta to Plavix - also c/o slurred speech and falling at home - Afib new - CXR (02/24/17) --> pulmonary edema - BMP (02/24/17) --> 330, 252 (02/25) - b/l doppler US (02/24/17) --> negative for DVT - Pt received Lasix in the ER --> diuresed 1,800ml - Pt with hypoalbuminemia - echocardiogram done --> EF 55-60% - CTA chest (02/25/17) --> non-specific interstitial disease upper lobes - continue Lasix at 20mg daily - suspect untreated WESLEY is contributing - ABG (02/26/17), not hypercapnic, some hypoxia - suspect presenting pt's dyspnea is d/t deconditioning, obesity, and untreated WESLEY - continue Lasix 20mg for now - Pt will need outpt sleep apnea testing - discharge to SNF today - Pt will need outpt sleep apnea testing - f/u with PCP Dr. Tai Cook, 1 week after discharge from SNF - f/u with Dr. Baron in 1-2 weeks for sleep apnea testing (2) Fall at home ICD Codes: W19.XXXA - Unspecified fall, initial encounter; Y92.099 - Unspecified place in other non-institutional residence as the place of occurrence of the external cause Plan: - neuroimaging studies are negative, see above - pt with right hip OA & trying to loose weight for surgery - PT, ambulation limited d/t right hip pain - Pt will need SNF for strengthening and weight training upon discharge - F/u with Orthopedist, Dr. Clemens, upon discharge. (3) Slurred speech ICD Codes: R47.81 - Slurred speech Plan: - MRI brain (02/24/17) --> NO acute findings - MRA brain (02/24/17) --> NO acute findings - CT brain (02/24/17) --> NO acute findings - Speech Therapy evaluation --> pending - TSH, free T4, folate, ammonia, RPR --> WNL - Appreciate Neurology consultation - Neurology felt that this could have been secondary to exacerbation of previous stroke deficits by current clinical condition. Other etiologies include myasthenia, oropharyngeal muscular weakness/neuropathy - Mg abs pending, to be followed up on as an outpt with Neurology - f/u with Dr. Kern in 3 weeks (4) Osteoarthritis of right hip ICD Codes: M16.11 - Unilateral primary osteoarthritis, right hip Plan: - excessive use of NSAIDs, see HPI - right hip x-ray --> severe OA - f/u with Orthopedist, Dr. Clemens, outpt for consideration of right AFIA - f/u with Dr. 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 Martinez (02/25/17) - No prior h/o A.Fib - continue metoprolol - start Eliquis 5mg BID - f/u with Dr. Martinez, outpt in 2 weeks (6) UTI (urinary tract infection) ICD Codes: N39.0 - Urinary tract infection, site not specified Plan: - Pt noted to have an E. coli UTI from UA at admission. - Pt has been on Rocephin. - Changed to PO bactrim - repeat urine showed elevated urobilinogen - most common etiologies: hemolysis & liver disease - doubt hemolysis. Pt's hg level has been stable - r/o steatohepatitis - liver US (02/28/17) --> cholelithiasis without cholecystitis - liver CT --> pending - awaiting hepatitis panel - f/u with GI outpt to r/o liver disease - Pt had CT abd/pelvis without contrast (03/01/17) - study reviewed with radiology 03/03/17 - possible abnormality at right kidney - but NO abnormality seen at right kidney on liver US 02/28/17, per radiology US afforded good view of kidney - for clarification will order outpt CT abd with contrast at [facility] - I am following the pt as attending at [facility]. The above studies were d /w pt and spouse at bedside. and I ordered CT abd with contrast. Await results. -, (7) CAD (coronary artery disease) ICD Codes: I25.10 - Coronary artery disease Status: Chronic Plan: - metoprolol, lisinopril - brillinta changed to plavix - case reviewed with Dr. Martinez, Cardiology, continue ASA/plavix (8) CVA (cerebral vascular accident) ICD Codes: I63.9 - CVA (cerebral vascular accident) Status: Chronic - see above (9) Hypertension ICD Codes: I10 - Hypertension Status: Chronic Plan: - metoprolol, lisinopril (10) WESLEY (obstructive sleep apnea) ICD Codes: G47.33 - Obstructive sleep apnea (adult) (pediatric) Status: Chronic Plan: - pt states that he snores loudly - pt has NOT had w/u for WESLEY - following hospitalization, pt will need outpt testing. - see above Pt Condition on Discharge: Stable Discharge Disposition: Discharge to SNF Discharge Instructions DIET: Follow Instructions for: Heart Healthy Diet Activities you can perform: Weight Bearing as Wilfred Activities to Avoid: Strenuous Activity Follow up Referrals: Cardiology - [address] Leonard Martinez Gastroenterology - [address] Tiago Tejeda pt with urobilinogen r/o contributing liver diseas Orthopedics - 4 Weeks with Tai Clemens MD PCP Follow-up - [address] Tai Cook f/u with PCP, Dr. Tai Cook, one week after discharge from SNF New Medications: Apixaban (Eliquis) 5 Mg Tab 5 MG PO BID for afib for 30 Days, TAB Potassium Chloride Microencaps (Potassium Chloride Microencaps) 20 Meq Tab 20 MEQ PO DAILY for lasix therapy for 30 Days, TAB Sulfamethoxazole-Trimethoprim (Sulfamethoxazole-Trimethoprim) 800-160 Mg Tab 1 TAB PO Q12HR for uti for 2 Days, TAB 0 Refills Tramadol (Ultram) 50 Mg Tab 50 MG PO Q6HR PRN for pain over 4, #60 TAB 0 Refills Continued Medications: Amlodipine (Amlodipine) 5 Mg Tab 5 MG PO DAILY for Blood Pressure Management, #30 TAB 0 Refills Clopidogrel (Clopidogrel) 75 Mg Tab 75 MG PO DAILY for Blood Clot Prevention, #30 TAB 0 Refills Furosemide (Furosemide) 20 Mg Tab 20 MG PO DAILY, #30 TAB 0 Refills Lisinopril (Lisinopril) 40 Mg Tab 40 MG PO DAILY for Blood Pressure Management, #30 TAB 0 Refills Metoprolol Tartrate (Metoprolol Tartrate) 100 Mg Tab 100 MG PO BID, #60 TAB 0 Refills Pravastatin (Pravastatin) 40 Mg Tab 40 MG PO DAILY for Cholesterol Management, #30 TAB 0 Refills Derek Adams DO Mar 01, 2017 12:58
[2017-03-01] MEDS ORDERED: DIATRIZOATE MEGLUM/DIATRIZOATE SOD 9 ML CUP PO ONE (13:00)
--- NOTE | 2017-03-01 13:03 | HHI.PR ---
Subjective Remarks No new complaints. Objective Vitals Vital Signs Date Time Temp Pulse Resp B/P (MAP) Pulse Ox O2 Delivery O2 Flow Rate FiO2 03/01/17 12:00 97.9 73 18 125/68 (87) 92 03/01/17 09:48 18 03/01/17 08:00 98.3 89 20 154/81 (105) 91 03/01/17 04:00 Room Air 03/01/17 04:00 98.6 90 20 135/75 (95) 96 03/01/17 00:00 98.8 76 20 135/66 (89) 95 03/01/17 00:00 Room Air 02/28/17 20:09 83 02/28/17 20:00 Room Air 02/28/17 20:00 98.2 84 22 139/68 (91) 97 02/28/17 16:00 98.5 81 20 142/87 (105) 94 Result Diagram: 02/28/17211402/28/172114 Imaging Last Impressions Chest X-Ray 02/26/17 0800 Signed Impressions: Service Date/Time: Sunday, February 26, 2017 08:41 - CONCLUSION: Persistent CHF without consolidated infiltrate Joshua Tyson MD Hip and Pelvis X-Ray 02/25/17 0000 Signed Impressions: Service Date/Time: Saturday, February 25, 2017 15:59 - CONCLUSION: 1. Severe degenerative change at the right hip joint. 2. Status post total hip replacement on the left with the hardware appearing well placed. Kalen Ellis MD CT Angiography 02/25/17 0000 Signed Impressions: Service Date/Time: Saturday, February 25, 2017 11:48 - CONCLUSION: Patchy peripheral airspace disease nonspecific mediastinal adenopathy. Airspace disease can be acute or chronic. Ayo Brantley MD FACR Head CT 02/24/17 1821 Signed Impressions: Service Date/Time: Friday, February 24, 2017 18:41 - CONCLUSION: No acute intracranial abnormality demonstrated. Small, old right thalamic infarct. Kalen Simmons MD Toe X-Ray 02/24/17 0000 Signed Impressions: Service Date/Time: Friday, February 24, 2017 18:35 - CONCLUSION: No fracture or subluxation demonstrated of the great toe. Moderate to severe osteoarthritis in the first metatarsophalangeal joint and sesamoids. Kalen Simmons MD Lower Extremity Ultrasound 02/24/17 0000 Signed Impressions: Service Date/Time: Friday, February 24, 2017 23:13 - CONCLUSION: No DVT is identified within either lower extremity. Kalen Weiss MD Head Magnetic Resonance Angiography 02/24/17 0000 Signed Impressions: Service Date/Time: Friday, February 24, 2017 22:29 - CONCLUSION: No acute intracranial vascular abnormality is identified. Kalen Weiss MD Brain MRI 02/24/17 0000 Signed Impressions: Service Date/Time: Friday, February 24, 2017 22:29 - CONCLUSION: 1. No acute intracranial abnormality is identified. There are no findings to indicate recent ischemia. 2. Chronic changes include mild cerebral atrophy and periventricular white matter change characteristic of chronic microvascular ischemia. Kalen Weiss MD Objective Remarks General: NAD, AAOx3 Chest: CTA Cardiac: Regular Abd: +BS, soft ND/NT Ext: Mild bilateral LE edema A/P Problem List: (1) UTI (urinary tract infection) ICD Codes: N39.0 - Urinary tract infection, site not specified Plan: - Pt noted to have an E. coli UTI from UA at admission. - bactrim - urine shows elevated urobilinogen - no indication of hemolysis - ?liver disease, anticipate that pt may have some degree of hepatosteatosis - liver US (02/28/17) --> cholelithiasis without cholecystitis - hepatitis panel --> pending - obtain CT abd/pelvis to further evaluate liver for possible hepatosteatosis (2) SOB (shortness of breath) ICD Codes: R06.02 - Shortness of breath Status: Acute Plan: - Pt is 61 yo male with cad, severe OA of right hip, untreated sleep apnea - presents with c/o sob. - Pt says he has been getting progressively sob for over 6 months but now is not only sob with exertion but even with rest and talking. - Per pt health and safety technician did an echo about 6m ago and apparently everything was ok. - Intentional weight loss of 50 pounds in order to get right SEA - Pt cough if he tries to drink fluids in bed - Taking up to 32 NSAIDs/day at times Aleve/Motrin x 9 months d/t right hip pain. Also prn Ultram - cardiology changed Brilinta to Plavix - also c/o slurred speech and falling at home - Afib new - CXR (02/24/17) --> pulmonary edema - BMP (02/24/17) --> 330, 252 (02/25) - b/l doppler US (02/24/17) --> negative for DVT - Pt received Lasix in the ER --> diuresed 1,800ml - Pt with hypoalbuminemia - echocardiogram done --> EF 55-60% - CTA chest (02/25/17) --> non-specific interstitial disease upper lobes - continue Lasix at 20mg daily - suspect untreated WESLEY is contributing - ABG (02/26/17), not hypercapnic, some hypoxia - suspect presenting pt's dyspnea is d/t deconditioning, obesity, and untreated WESLEY - continue Lasix 20mg for now - Pt will need outpt sleep apnea testing - anticipate d/c to home in next 1-2 days (3) Fall at home ICD Codes: W19.XXXA - Unspecified fall, initial encounter; Y92.099 - Unspecified place in other non-institutional residence as the place of occurrence of the external cause Plan: - neuroimaging studies are negative, see above - pt with right hip OA & trying to loose weight for surgery - PT, ambulation limited d/t right hip pain (4) Slurred speech ICD Codes: R47.81 - Slurred speech Plan: - MRI brain (02/24/17) --> NO acute findings - MRA brain (02/24/17) --> NO acute findings - CT brain (02/24/17) --> NO acute findings - Speech Therapy evaluation --> pending - TSH, free T4, folate, ammonia, RPR --> WNL - Appreciate Neurology consultation - Neurology felt that this could have been secondary to exacerbation of previous stroke deficits by current clinical condition. Other etiologies include myasthenia, oropharyngeal muscular weakness/neuropathy - Mg abs pending, to be followed up on as an outpt with Neurology (5) Osteoarthritis of right hip ICD Codes: M16.11 - Unilateral primary osteoarthritis, right hip Plan: - excessive use of NSAIDs, see HPI - right hip x-ray --> severe OA - f/u with Orthopedist, Dr. Clemens, outpt for consideration of right SEA (6) Afib ICD Codes: I48.91 - Unspecified atrial fibrillation Status: Acute Plan: - case d/w pt's Hand Coper, Dr. Martinez (02/25/17) - No prior h/o A.Fib - continue metoprolol - start Eliquis 5mg BID - f/u with Dr. Martinez, outpt - per nursing, pt having occasion pause, awaiting strips to evaluate further - place holter (7) CAD (coronary artery disease) ICD Codes: I25.10 - Coronary artery disease Status: Chronic Plan: - metoprolol, lisinopril - brillinta changed to plavix - plavix non-responder? (8) CVA (cerebral vascular accident) ICD Codes: I63.9 - CVA (cerebral vascular accident) Status: Chronic (9) Hypertension ICD Codes: I10 - Hypertension Status: Chronic Plan: - metoprolol, lisinopril (10) WESLEY (obstructive sleep apnea) ICD Codes: G47.33 - Obstructive sleep apnea (adult) (pediatric) Status: Chronic Plan: - pt states that he snores loudly - pt has NOT had w/u for WESLEY - following hospitalization, pt will need outpt testing. Problem Qualifiers (1) Osteoarthritis of right hip: Qualified Codes: M16.11 - Unilateral primary osteoarthritis, right hip (2) Afib: Qualified Codes: I48.91 - Unspecified atrial fibrillation (3) CAD (coronary artery disease): Qualified Codes: I25.10 - Atherosclerotic heart disease of [place] coronary artery without angina pectoris (4) Hypertension: Qualified Codes: I10 - Essential (primary) hypertension Derek Adams DO Mar 01, 2017 13:03
[2017-03-01] MEDS ORDERED: APIX5TAB PO (13:09)
[2017-03-01] MEDS ORDERED: SULF1TAB23 PO (13:09)
[2017-03-01] MEDS ORDERED: POTA20TA5 PO (13:09)
[2017-03-01] MEDS ORDERED: ULTR50TA5 PO (13:09)
[2017-03-01 15:49] LABS: BASOPHIL # 0.1 TH/MM3 (0-0.2); BASOPHIL % 0.5 % (0.0-2.0); EOSINOPHIL # 0.3 TH/MM3 (0-0.4); EOSINOPHIL % 1.2 % (0.0-4.0); HEMATOCRIT 38.4 % (39.0-51.0); LYMPH % 11.7 % (9.0-44.0); LYMPHOCYTE # 2.5 TH/MM3 (1.0-4.8); MEAN CELL VOLUME 84.8 FL (80.0-100.0); MEAN CORPUSCULAR HEMOGLOBIN 27.7 PG (27.0-34.0); MEAN CORPUSCULAR HGB CONC 32.6 % (32.0-36.0); MONO % 6.2 % (0.0-8.0); NEUT % 80.4 % (16.0-70.0); PLATELET COUNT 468 TH/MM3 (150-450); RED BLOOD COUNT 4.53 MIL/MM3 (4.50-5.90); RED CELL DISTRIBUTION WIDTH 15.7 % (11.6-17.2); WHITE BLOOD COUNT 21.2 TH/MM3 (4.0-11.0)
[2017-03-01 15:53] LABS: HEMO FLAGS AUTO DIFF
[2017-03-01 16:00] VITALS: BP 149/82; PULSE 83; RESP 18; TEMP 98.4; O2SAT 95
[2017-03-01 16:11] LABS: MAGNESIUM 2.4 MG/DL (1.5-2.5); POTASSIUM 4.2 MEQ/L (3.5-5.1)
[2017-03-01 16:29] LABS: BANDS 5 % (0-6); EOSINOPHILS 1 % (0-4); PLATELET ESTIMATE SMEAR HIGH (NORMAL); PLATELET MORPHOLOGY NORMAL (NORMAL); POLYS (SEG NEUTROPHILS) 80 % (16-70); SCAN/DIFF FINAL DIFF MANUAL; WBC DIFF SAMPLE 100
--- NOTE | 2017-03-01 20:17 | RADRPT ---
EXAM DATE/TIME: 03/01/2017 18:31 [facility] COMPARISON: CT PULMONARY ANGIOGRAM, February 25, 2017, 11:48. INDICATIONS : Urobilinogen. Fatty liver. Patient complains of generlized weakness and loss of bal ance. ORAL CONTRAST: Partial prescribed oral contrast ingested. RADIATION DOSE: 23.77 CTDIvol (mGy) MEDICAL HISTORY : Cardiovascular disease. Hypertension. A fib, diabetes, immunological disorder. SURGICAL HISTORY : Appendectomy. ENCOUNTER: Initial ACUITY: 2 days PAIN SCALE: 0/10 LOCATION: Abdomen. TECHNIQUE: Volumetric scanning of the abdomen and pelvis was performed. Using automated exposure control and adjustment of the mA and/or kV according to patient size, radiation dose was kept as low as reasonably achievable to obtain optimal diagnostic quality images. DICOM format image data is av ailable electronically for review and comparison. FINDINGS: The liver, spleen, pancreas and adrenal glands are normal. Small calcified gallstones a re seen. The gallbladder is not distended. There is some lobulation to the inferior aspect of the r ight kidney. A distinct mass is not clearly identified on this noncontrast CT examination. No hydro nephrosis or renal stones are seen. Scattered atherosclerotic calcifications are seen throughout the arterial system. No aneurysm is seen. The bowel is unremarkable. The pelvic structures appear agueda sly intact. There is a prominent degenerative change with areas of stenosis in the lumbar spine. Th ere is chronic change at the left lateral iliac bone likely from injury. The patient has a left hip prosthesis in place. There is severe degenerative change at the right hip joint. There is some atele ctasis seen at the posterior lung bases. CONCLUSION: 1. No definite acute abnormality is seen. 2. Small calcified gallstones. 3. Lobulated appearance of the inferior aspect of the right kidney. A distinct mass is not clearly id entified on this noncontrast CT examination. This area is asymmetric and should be further evaluated at some point with either a contrast enhanced CT or MRI examination. This could be performed as an o utpatient. 4. Prominent degenerative change in the lumbar spine with areas of stenosis. 5. Severe degenerative change in the right hip joint. The patient has a left hip prosthesis. Kalen Ellis MD on March 01, 2017 at 19:53 Board Certified Radiologist. This report was verified electronically.
[2017-03-01 23:52] LABS: ACETYLCHOLINE REC BINDING LESS THAN 0.30 nmol/L
[2017-03-02 03:50] LABS: STRIATED MUCLE AB TITER ND (<1:40)
--- NOTE | 2017-03-03 12:39 | HM ---
Date Performed: 03/01/2017 Time Performed: 19:44:00 HOOKUP DATE: 03/01/17 07:44:00 PM Fri ANALYSIS START TIME: 03/01/2017 7:49:00 PM ANALYSIS END TIME: 03/02/2017 9:39:07 AM PATIENT AGE: 61 PATIENT HEIGHT: 71 PATIENT WEIGHT: 325 DRUG LIST PATIENT DIAGNOSIS: CHF/Afib TEST NARRATIVE: The patient's average heart rate was 84 BPM. Heart rates greater than 120 B PM were noted 1% of the time. No episodes of bradycardia were noted. 3 pauses exceeding 2.0 sec onds were noted. The longest pause of 2.1 seconds occurred at 05:53:45 AM Sat. 3953 ventricular e ctopics, which represented 6% of the total beat count, were noted. The highest ventricular ectopic f requency occurred from 08:00 PM to 09:00 PM Fri. During this time 414 VE(s) occurred. Ventricular e ctopics were observed as 3927 isolated beat(s) and as 13 couplet(s). No runs were noted. Some of th e ventricular beats occurred in bigeminal cycles. No supraventricular ectopics were noted. No episodes of ST depression (defined as -1.0 mm or more) were noted in channel 1. No episodes of ST d epression (defined as -1.0 mm or more) were noted in channel 2. In channel 3, a single episode of ST depression (defined as -1.0 mm or more) occurred at 09:37:00 AM Sat with a maximum depression of -2. 0 mm. No diary events were reported by the patient. TEST INTERPRETATION: paroxysmal atrial fibrillation with controlled ventricular rate and rare sh ort pauses (< 3 seconds) Occasional PACs and short atrial runs Occasional to frequent PVCs in singlet s and couplets Signed by : Leonard Martinez
== END 2017-03-01 20:00 | DRG 57 ==
LOC: NEPE 18:09 → INTOOBSV 20:03 → NEDA 20:03 → HCIS 02-25 → N04B 02-25 20:36 → OBSVTOIN 02-26 11:29
PROVIDERS: ADMIT Hospitalist; ATTEND Hospitalist
DX: I69.298 Other sequelae of other nontraumatic intracranial hemorrhage (principal); Z68.42 Body mass index [BMI] 45.0-49.9, adult; I48.91 Unspecified atrial fibrillation; E86.0 Dehydration; N39.0 Urinary tract infection, site not specified; I10 Essential (primary) hypertension; M16.11 Unilateral primary osteoarthritis, right hip; E88.09 Other disorders of plasma-protein metabolism, not elsewhere classified; E78.5 Hyperlipidemia, unspecified; B96.20 Unspecified Escherichia coli [E. coli] as the cause of diseases classified elsewhere; E66.9 Obesity, unspecified; R47.81 Slurred speech; G47.33 Obstructive sleep apnea (adult) (pediatric); I25.10 Atherosclerotic heart disease of native coronary artery without angina pectoris; J45.909 Unspecified asthma, uncomplicated; I25.2 Old myocardial infarction; Z95.5 Presence of coronary angioplasty implant and graft
CPT/HCPCS: 36600; 70450; 70544; 70551; 71010; 71020; 71275; 73502; 73660; 74176; 76705; 80048; 80053; 80074; 80076; 81001; 82140; 82550; 82570; 82607; 82746; 82805; 83519; 83735; 83880; 84145; 84156; 84439; 84443; 84484; 85007; 85027; 85610; 85652; 85730; 86140; 86255; 86592; 87077; 87086; 87186; 93005; 93225; 93226; 93306; 93970; 96361; 96365; G0378; G8987-GP; G8988-GP; G8999-GN; G9158-GN; G9186-GN; J0696; J1940; J7030; Q9963; Q9967

== ENCOUNTER → 2017-04-29 | Day surgery (SDC) | payer OTHER ==
[~2017-04-29] MED LIST changes: +AMLO5TAB2 PO; -AMLO5TAB22 PO; +APIX5TAB PO; -ASPI325T PO; +CLOP75TA PO; +FURO20TA PO; +LACTATED RINGER'S 1000 ML INJ 1,000 ML ONE; +LISI40TA PO; -METO100 PO; +METO100T PO; -MULT1TAB46 PO; +POTA20TA5 PO; -PRAV40 PO; +PRAV40TA2 PO; +PROPOFOL 500 MG/50 ML BTL IV ONE; +SULF1TAB23 PO; -TICA90 PO; +ULTR50TA5 PO
--- NOTE | 2017-04-29 12:40 | GIPROC ---
[facility] [address] [facility] [place], [address] COLONOSCOPY PROCEDURE REPORT EXAM DATE: 04/29/2017 PATIENT NAME: Michale Staples MR #: [id number] BIRTHDATE: 1955 ENDOSCOPIST: Katie Membreno MD ORDER #: [id number] LIME SLUDGE MIXER: Obed Casanova RN STATUS: outpatient INDICATIONS: The patient is a 62 yr old male here for a colonoscopy due to average risk patient for colon cancer MEDICATIONS: None and Per Anesthesia. PREP QUALITY: The Norris Bowel Prep Score was Right colon 2, Mid colon 3, and Left colon 3. Total = 8. ESTIMATED BLOOD LOSS: None CONSENT: The patient understands the risks and benefits of the procedure and understands that these risks include, but are not limited to: sedation, allergic reaction, infection, perforation and/or bleeding. Alternative means of evaluation and treatment include, among others: physical exam, x-rays, and/or surgical intervention. The patient elects to proceed with this endoscopic procedure. medical equipment was checked for proper function. Hand hygiene and appropriate measures for infection prevention was taken. After the risks, benefits and alternatives of the procedure were thoroughly explained, Informed consent was verified, confirmed and timeout was successfully executed by the treatment team. A digital exam revealed external hemorrhoids The EC-[id number] ([id number]) endoscope was introduced through the anus and advanced to the cecum, which was identified by both the appendix and ileocecal valve. The instrument was then slowly withdrawn as the colon was fully examined. COLON FINDINGS: Three polypoid shaped sessile polyps ranging between 5-9mm in size were found in the sigmoid colon. A polypectomy was performed using snare cautery. The resection was complete and the polyp tissue was completely retrieved. A smooth flat polyp ranging between 3-5mm in size was found at the cecum. Multiple biopsies were performed using cold forceps. Retroflexed views revealed internal hemorrhoids and Retroflexed views revealed small internal hemorrhoids The scope was then completely withdrawn from the patient and the procedure terminated. PROCEDURE WITHDRAWAL TIME:9minutes ADVERSE EVENTS: There were no complications. IMPRESSIONS: 1. Three sessile polyps ranging between 5-9mm in size were found in the sigmoid colon; polypectomy was performed using snare cautery 2. A flat polyp ranging between 3-5mm in size was found at the cecum; multiple biopsies were performed using cold forceps 3. Retroflexed views revealed internal hemorrhoids 4. Retroflexed views revealed small internal hemorrhoids 5. Revealed external hemorrhoids RECOMMENDATIONS: 1. Await biopsy results. Biopsy results will not be ready for 7-10 days. If you don't hear from us in two weeks, call our office for results. 2. Yearly hemoccult 3. Resume eliquis tomorrow, watch for rectal bleeding x 1 week. RECALL: Return 1 year Colonoscopy, pending biopsy results Katie Membreno MD eSigned: Katie Membreno MD 04/29/2017 12:40 PM cc: Perla Mckenzie [facility] Lizzy PATIENT NAME: Michael Staples MR#: [id number]
== END | disposition home or self-care (01) ==
LOC: ESDC 10:59
PROVIDERS: ATTEND Internal Medicine Gastroenterology
DX: Z12.11 Encounter for screening for malignant neoplasm of colon (principal); K64.4 Residual hemorrhoidal skin tags; D12.0 Benign neoplasm of cecum; D12.5 Benign neoplasm of sigmoid colon; K64.8 Other hemorrhoids
CPT/HCPCS: 00810; 45380; 45385; 88305; J3010; J7120

== ENCOUNTER → 2017-10-14 | Outpatient (CLI) | payer MEDICARE ==
[~2017-10-14] MED LIST changes: -LACTATED RINGER'S 1000 ML INJ 1,000 ML ONE; +MULT-65 PO; +OMEG-33 PO; +OXYC1TAB63 PO; -PROPOFOL 500 MG/50 ML BTL IV ONE; +TERA5CAP3 PO; +TRAM50 PO; +TURM500C3 PO; -ULTR50TA5 PO; +WALKER WHEELS/F1 MIS
== END ==
LOC: CPRE 11:30
PROVIDERS: ATTEND Orthopaedic Surgery Sports Medicine
DX: M79.609 Pain in unspecified limb (principal)

== ENCOUNTER 2017-10-24 08:00 | Inpatient (IN) | payer MEDICARE ==
[~2017-10-24] VITALS: Ht 154.9 cm; Wt 138.1 kg
[~2017-10-24 08:00] MED LIST changes: -AMLO5TAB2 PO; -OXYC1TAB63 PO; -SULF1TAB23 PO; -TRAM50 PO; -WALKER WHEELS/F1 MIS
[2017-10-24] MEDS ORDERED: ceFAZolin INJ 1,000 MG VIAL ONE (08:27)
[2017-10-24] MEDS ORDERED: EXPAREL PERI-ARTICULAR INJECTION (TOTAL VOL. 60 ML) P-ARTICULR SCH ×2 (08:30)
[2017-10-24] MEDS ORDERED: POVIDONE IODINE 5% (ANTISEPSIS KIT) 4 APPLICATIONS EACH NARE PRN (08:30)
[2017-10-24] MEDS ORDERED: METOPROLOL TARTRATE 25 MG TAB PO PRN (08:30)
[2017-10-24] MEDS ORDERED: SODIUM CHLORIDE 0.9% IV SCH (08:30)
[2017-10-24] MEDS ORDERED: TRANEXAMIC ACID IV SCH (08:30)
[2017-10-24] MEDS ORDERED: CHLORHEXIDINE GLUCONATE 4% SOLN 120 ML BTL TOPICAL SCH (08:30)
[2017-10-24] MEDS ORDERED: LACTATED RINGER'S 1000 ML IV PRN (08:30)
[2017-10-24] MEDS ORDERED: CHLORHEXIDINE GLUCONATE 2 % 1 PACK (2 CLOTHS) TOPICAL PRN (08:30)
[2017-10-24] MEDS ORDERED: ceFAZolin 2 GM PREMIX 50 ML IV SCH (08:30)
[2017-10-24] MEDS ORDERED: INSULIN HUMAN REGULAR 1,000 UNITS/10 ML VIAL SQ PRN (08:30)
[2017-10-24] MEDS ORDERED: SODIUM CHLORID 0.9% 500 ML IV PRN (08:30)
[2017-10-24] MEDS ORDERED: VANCOMYCIN 1 GM/200 ML PREMIX IV SCH (08:45)
[2017-10-24] MEDS ORDERED: ACETAMINOPHEN 1000 MG/100 ML 100 ML IV ONE (09:16)
[2017-10-24] MEDS ORDERED: FAMOTIDINE 20 MG/2 ML VIAL ONE (09:17)
[2017-10-24] MEDS ORDERED: MIDAZOLAM HCL 2 MG/2 ML VIAL ONE (09:17)
--- NOTE | 2017-10-24 12:28 | RADRPT ---
EXAM DATE/TIME: 10/24/2017 10:55 [facility] COMPARISON: No previous studies available for comparison. INDICATIONS : Post-op total right hip arthroplasty. MEDICAL HISTORY : None. SURGICAL HISTORY : Left hip arthroplasty. ENCOUNTER: Initial ACUITY: 1 day PAIN SCORE: Non-responsive. LOCATION: Right hip. FINDINGS: 2 views of the right hip were obtained and demonstrate the patient is status post arthroplasty. The f emoral and acetabular components are intact and in normal alignment. There is mild overlying artifact . CONCLUSION: Expected postoperative changes status post arthroplasty. Kevin Anaya MD on October 24, 2017 at 12:25 Board Certified Radiologist. This report was verified electronically.
[2017-10-24] MEDS ORDERED: *MEPERIDINE 25 MG INJ VIAL PERIprocedural Use ONLY ONE (12:58)
[2017-10-24] MEDS ORDERED: Post-op Orders (for Pharmacy) XX ONE (13:00)
--- NOTE | 2017-10-24 13:08 | PD.OP ---
Operative Report Preoperative Diagnosis: (1) Osteoarthritis of right hip Postoperative Diagnosis: (1) Osteoarthritis of right hip Procedure: Right Total Hip Arthroplasty - Anterior Approach Anesthesia: General Surgeon: Tai Clemens MD Strip Cleaner(s): Tai Plasencia MD Oct 24, 2017 13:08
[2017-10-24] MEDS ORDERED: HYDROmorphone HCL PF 0.5 MG/0.5 ML SYRINGE ONE ×2 (13:12→13:33)
[2017-10-24] MEDS ORDERED: DO NOT ADM ANY ANTICOAGULANT DRUGS PRN (13:15)
[2017-10-24] MEDS ORDERED: SENNOSIDES 8.6 MG TAB PO PRN (14:00)
[2017-10-24] MEDS ORDERED: ONDANSETRON HCL 4 MG/2 ML VIAL IVP PRN (14:00)
[2017-10-24] MEDS ORDERED: BISACODYL 10 MG SUPP RECTAL PRN (14:00)
[2017-10-24] MEDS ORDERED: MAGNESIUM HYDROXIDE SUSP 30 ML CUP PO PRN (14:00)
[2017-10-24] MEDS ORDERED: HYDROmorphone HCL PF 2 MG/ML VIAL IV PUSH PRN (14:00)
[2017-10-24] MEDS ORDERED: LACTULOSE SYRUP 20 GM/30 ML CUP PO PRN (14:00)
[2017-10-24] MEDS: SODIUM CHLOR 0.9% 1000 ML INJ 1,000 ML IV SCH (14:00)
[2017-10-24] MEDS: oxyCODONE/ACETAMINOPHEN 5 MG/325 MG TAB PO PRN ×2 (15:26→21:07)
--- NOTE | 2017-10-24 15:26 | MP ---
cc: Tai Clemens MD DATE OF OPERATION: 10/24/2017 DATE OF PROCEDURE: 10/24/2017 PREOPERATIVE DIAGNOSIS: Right hip severe osteoarthritis. POSTOPERATIVE DIAGNOSIS: Right hip severe osteoarthritis. PROCEDURE PERFORMED: Right total hip arthroplasty - anterior approach using Bk and Bk DePuy high offset size 12 mm femoral stem with a 36 mm ceramic femoral head and a 56 mm acetabular shell with a neutral polyethylene for a 36 mm femoral head. ANESTHESIA: General. SURGEON: Tai Clemens MD DRILL RIG OPERATOR HELPER: MARICRUZ Callahan ESTIMATED BLOOD LOSS: 200 mL. DRAIN: None. SPECIMENS: Bone fragments discarded. COMPLICATIONS: None known. INDICATIONS FOR PROCEDURE: Michael Staples is a 62-year-old male with severe debilitating right hip osteoarthritis. He has failed conservative management for this problem and is indicated for right total hip arthroplasty. The risks, benefits and alternatives to treatment were thoroughly discussed and detailed informed consent has been obtained. The assistant purchasing manager is an advanced registered nurse practitioner, and his skill set is medically necessary for the performance of the operation. DESCRIPTION OF PROCEDURE: The patient was brought to the operating room. He was placed under general anesthetic. He was placed on a well-padded [place] table. The right hip is prepped and draped in the usual sterile fashion. IV antibiotics were given. Timeout is completed. We proceeded with a direct anterior approach to the hip with meticulous hemostasis with the use of the Aquamantys device and we went along. We performed a T capsulotomy anteriorly and tagged this with #2 FiberWire. Then, we used fluoroscopy to help determine our femoral neck cut in accordance with preoperative planning and proceeded to make this cut and then proceeded to place retractors about the acetabulum and proceeded with sequential reaming and medialized the cup and then impacted a 56 mm cup with excellent fixation. A neutral polyethylene was placed and confirmed to be well fixated. Attention was drawn to the femur. We used a lifting hook. We maximally externally rotated and dropped to the floor and crossed over. We used the box chisel, canal finder and at this point, we used a chili pepper broach and then sequential broaching size 8, size 9, size 10, size 11 and size 12. At this point, we used a calcar reamer. In accordance with preoperative planning, we used the offset neck and did our trial reduction and the 1.5 was dislocatable and we used a +5 head and then we printed this out and compared it to our knitter hand views and very nicely recreated the original hip. These were then the final components selected and this was impacted into place and the depth of the prosthesis was fine tuned and then ultimately the +5 ceramic head was the final femoral head and the hip reduced and confirmed to be stable with 90 degrees external rotation and dropping performed without subluxation. We proceeded to irrigate it out with copious amounts of irrigation and we had very good hemostasis. We repaired the capsule, injected long-acting Marcaine, proceeded to close in layers with absorbable suture, subcuticular on the skin. Steri-Strips applied, sterile dressing applied. The patient was awakened and returned to recovery room in stable condition. MD BEV Chapman/LINDA , 02:40 PM , 03:25 PM
[2017-10-24 16:00] VITALS: BP 109/74; PULSE 71; RESP 18; TEMP 97.1; O2SAT 95
[2017-10-24] MEDS: ceFAZolin 2 GM PREMIX 50 ML IV SCH ×2 (18:31→22:54)
[2017-10-24 20:00] VITALS: BP 123/69; PULSE 85; RESP 18; TEMP 97.6; O2SAT 95; O2SAT 97
[2017-10-24] MEDS: DOCUSATE SODIUM 50 MG/SENNA 8.6 MG TAB PO SCH (21:07)
[2017-10-24] MEDS: METOPROLOL TARTRATE 100 MG TAB PO SCH (21:07)
[2017-10-24 22:50] VITALS: BP 120/66; PULSE 76; RESP 18; TEMP 97.7; O2SAT 94
[2017-10-24] MEDS: TERAZOSIN HCL 5 MG CAP PO SCH (22:53)
[2017-10-25] VITALS (9 sets, daily range): BP systolic 82–130; BP diastolic 50–64; PULSE 74–91; RESP 17–18; TEMP 97.3–97.7; O2SAT 94–97
[2017-10-25] MEDS: oxyCODONE/ACETAMINOPHEN 5 MG/325 MG TAB PO PRN ×4 (02:45→22:47)
[2017-10-25] MEDS: ceFAZolin 2 GM PREMIX 50 ML IV SCH (05:26)
[2017-10-25] MEDS: DOCUSATE SODIUM 50 MG/SENNA 8.6 MG TAB PO SCH ×2 (08:31→21:35)
[2017-10-25] MEDS: PRAVASTATIN SOD 40 MG TAB PO SCH (08:31)
[2017-10-25] MEDS: POTASSIUM CHLORIDE 20 MEQ CONTROLLED RELEASE TAB PO SCH (08:31)
[2017-10-25] MEDS: LISINOPRIL 20 MG TAB PO SCH (08:31)
[2017-10-25] MEDS: APIXABAN 5 MG TABLET PO SCH ×2 (08:31→21:35)
[2017-10-25] MEDS: MULTIVITAMIN TAB PO SCH (08:32)
[2017-10-25] MEDS: METOPROLOL TARTRATE 100 MG TAB PO SCH ×3 (08:32→21:36)
[2017-10-25] MEDS: SODIUM CHLOR 0.9% 1000 ML INJ 1,000 ML IV SCH (08:32)
[2017-10-25] MEDS: FUROSEMIDE 20 MG TAB PO SCH (08:32)
--- NOTE | 2017-10-25 09:15 | PD.CONS ---
HPI Service [facility] Hospitalists Consult Requested By Dr. Clemens Reason for Consult Postoperative assistance with "multiple medical problems" Primary Care Physician Tai Cook MD Diagnoses: History of Present Illness This a 62-year-old male patient with past medical history which includes CAD status post RCA stent in 2014, atrial fibrillation, hypertension, prior lacunar CVA, hyperlipidemia, untreated obstructive sleep apnea, severe osteoarthritis of the right hip with multiple revisions. Patient presented to the hospital on 10/24/2017 underwent right total hip arthroplasty anterior approach with Dr. Clemens. We have been consulted for assistance postoperative medical management. Patient reports feeling well at this time reports to level postoperative pain better with medications. Patient did become hypotensive after receiving Percocet earlier. At that time he was feeling weak and light headed. Patient reports feeling better at this time. Patient denies nausea vomiting diarrhea constipation fevers chills shortness of breath or chest pain. Review of Systems Constitutional: DENIES: Fatigue, Fever, Chills Eyes: DENIES: Blurred vision, Diplopia, Vision loss Respiratory: DENIES: Cough, Sputum production, Shortness of breath Cardiovascular: DENIES: Chest pain, Palpitations, Dyspnea on Exertion, Lower Extremity Edema Gastrointestinal: DENIES: Abdominal pain, Constipation, Diarrhea, Nausea, Vomiting Musculoskeletal: COMPLAINS OF: Joint pain, Stiffness, Joint Swelling Neurologic: DENIES: Headache, Speech Problems Psychiatric: DENIES: Anxiety, Confusion, Depression Past Family Social History Past Medical History cad, 2015 RCA stent ?afib htn old lacunar cva hyperlipidemia untreated [place] severe OA right hip Hx left SEA. several revisions Past Surgical History Tonsils/adenoids 2015 RCA stent Hx left SEA. several revisions Reported Medications Potassium Chloride Microencaps 20 Meq Tab 20 Meq PO DAILY 30 Days Eliquis (Apixaban) 5 Mg Tab 5 Mg PO BID 30 Days Fish Oil [place]-3 EC 1,200 mg ([place]-3/Dha/Epa/Fish Oil) 360 Mg-1,200 Mg Capsule. 1 Cap PO DAILY Turmeric (Turmeric (Curcuma Longa)) 450 Mg-50 Mg Cap 1 Cap PO DAILY Multi-Vitamin Daily (Multiple Vitamin) 1 Tab Tab 1 Tab PO DAILY Terazosin (Terazosin HCl) 5 Mg Cap 5 Mg PO HS Furosemide 20 Mg Tab 20 Mg PO DAILY Metoprolol Tartrate 100 Mg Tab 100 Mg PO BID Pravastatin 40 Mg Tab 40 Mg PO DAILY Lisinopril 40 Mg Tab 40 Mg PO DAILY Allergies: Coded Allergies: ciprofloxacin (Unverified Allergy, Severe, 10/24/17) levofloxacin (Unverified Allergy, Severe, 10/24/17) morphine (Unverified Allergy, Severe, Nausea/Vomiting, 10/24/17) Uncoded Allergies: PICHARDO PIE FILLING (Adverse Reaction, Severe, Anaphylaxis, 10/24/17) Family History Noncontributory Social History Patient reports occasional EtOH use Denies tobacco use Physical Exam Vital Signs Vital Signs Date Time Temp Pulse Resp B/P (MAP) Pulse Ox O2 Delivery O2 Flow Rate FiO2 10/25/17 07:36 97.3 74 18 129/60 (83) 97 10/25/17 04:00 97.7 91 18 93/56 (68) 95 10/24/17 22:50 97.7 76 18 120/66 (84) 94 10/24/17 20:00 97 21 10/24/17 20:00 97.6 85 18 123/69 (87) 95 10/24/17 16:00 97.1 71 18 109/74 (86) 95 10/24/17 15:30 79 20 106/59 (75) 99 Room Air 10/24/17 14:45 79 20 106/58 (74) 99 Room Air 10/24/17 13:45 71 20 131/60 (83) 99 Room Air 10/24/17 13:30 71 20 130/59 (82) 95 Room Air 10/24/17 13:15 73 20 125/70 (88) 98 Room Air 10/24/17 13:00 68 20 114/58 (76) 93 Room Air 10/24/17 12:45 97.6 81 20 124/56 (78) 95 Nasal Cannula 2 Physical Exam GENERAL: This is a well-nourished, well-developed patient, in no apparent distress. SKIN: Postoperative dressing dry and intact HEAD: Atraumatic. Normocephalic. No temporal or scalp tenderness. EYES: Extraocular motions intact. No scleral icterus. No injection or drainage. CARDIOVASCULAR: Regular rate and rhythm RESPIRATORY: Clear to auscultation. Breath sounds equal bilaterally. GASTROINTESTINAL: Abdomen soft, non-tender, nondistended. MUSCULOSKELETAL: Extremities without clubbing, cyanosis, or edema. No joint tenderness, effusion, or edema noted. No calf tenderness. Negative Homans sign bilaterally. NEUROLOGICAL: Awake and alert. Motor and sensory grossly within normal limits. Five out of 5 muscle strength in all muscle groups, with the exception of post op extremity. Normal speech. Imaging Last Impressions Hip X-Ray 10/24/17 0000 Signed Impressions: Service Date/Time: September 10:55 - CONCLUSION: Expected postoperative changes status post arthroplasty. Kevin Anaya MD Assessment and Plan Problem List: (1) Osteoarthritis of right hip ICD Codes: M16.11 - Unilateral primary osteoarthritis, right hip Plan: S/P Right total hip arthroplasty anterior approach with Dr. Sarath Sewell as needed for pain Patient on Eliquis for anticoagulation (2) Afib ICD Codes: I48.91 - Unspecified atrial fibrillation Status: Acute Plan: Continue patient's home Eliquis, and metoprolol 100 mg BID (3) Hyperlipidemia ICD Codes: E78.5 - Hyperlipidemia Status: Acute Plan: Continue patient's home pravastatin 40mg daily (4) Hypertension ICD Codes: I10 - Hypertension Status: Chronic Plan: Continue patient's home metoprolol 100 mg PO BID, Lisinopril 40 mg PO daily and Lasix 20 mg PO daily Add hold parameters to BP medications (5) CVA (cerebral vascular accident) ICD Codes: I63.9 - CVA (cerebral vascular accident) Status: Chronic Plan: Continue home pravastatin 40 mg PO daily, metoprolol 100 mg PO BID and eliquis 5 mg daily (6) CAD (coronary artery disease) ICD Codes: I25.10 - Coronary artery disease Status: Chronic Plan: CAD status post RCA stent in 2014 Continue home pravastatin 40 mg PO daily, metoprolol 100 mg PO BID Assessment and Plan Patient examined. Assessment and plan formulated with Gemini Pride PA-C. I agree with the above. Pt hypotensive with SBP in the 80s and dizzy at the time of my rounds. Pt received dose of percocet at the time of his AM BP medications. Pt placed in Trendelenburg and SBP recovered to 102. Will give IVF for 2 hours. Pt should be observed overnight. Do not give percocet at same time as BP meds. Anticipate d/c to home 10/26 with [facility] and home PT. Gemini Pride Oct 25, 2017 09:15 Derek Adams DO Oct 25, 2017 12:43
--- NOTE | 2017-10-25 10:58 | HHI.FF ---
Face to Face Verification Diagnosis: (1) S/P total hip arthroplasty (2) Osteoarthritis of right hip Physical Therapy Order: Evaluate and Treat, Improve ambulation, Strength and gait training Home Health Nursing Order: Medical education Signs/symptoms of disease process Medication education-adverse effect Wound care and dressing changes Nursing assessment with vital signs Instructions: Wound care per Dr. Clemens's orders I have seen patient Michael Staples on 10/25/17. My clinical findings support the need for the requested home health care services because: Ltd mobility - disease progression Deconditioned w/ increased weakness Med compliance is questionable Limited ability to care for self Need for psychosocial assistance High risk of falls I certify that my clinical findings support that this patient is homebound because: Impaired cognitive ability/safety Unsteady gait/balance Unsafe to leave home unassisted Need for psychosocial assistance Unable to use public transportation Derek Adams DO Oct 25, 2017 10:58
--- NOTE | 2017-10-25 15:40 | PD.ORT.PN ---
Subjective Subjective Remarks Patient comfortable Objective Vitals Vital Signs Date Time Temp Pulse Resp B/P (MAP) Pulse Ox O2 Delivery O2 Flow Rate FiO2 10/25/17 14:20 84 17 119/64 (82) 10/25/17 14:03 94 21 10/25/17 12:00 104/57 (73) 10/25/17 11:35 87/54 (65) 10/25/17 11:25 97.6 88 18 82/50 (61) 95 10/25/17 07:36 97.3 74 18 129/60 (83) 97 10/25/17 04:00 97.7 91 18 93/56 (68) 95 10/24/17 22:50 97.7 76 18 120/66 (84) 94 10/24/17 20:00 97 21 10/24/17 20:00 97.6 85 18 123/69 (87) 95 10/24/17 16:00 97.1 71 18 109/74 (86) 95 I/O 10/24/17 10/24/17 10/24/17 10/25/17 10/25/17 10/25/17 07:00 15:00 23:00 07:00 15:00 23:00 Intake Total 1500 ml 240 ml 563 ml Output Total 200 ml 500 ml 850 ml Balance 1300 ml -500 ml -610 ml 563 ml Intake Oral 240 ml IV Total 563 ml Other 1500 ml Output Urine Total 500 ml 850 ml Estimated Blood Loss 200 ml # Bowel Movements 0 Objective Remarks Right hip Dressing clean dry and intact With negative Homans sign Motor, sensory and vascular exam intact Assessment & Plan Problem List: (1) Osteoarthritis of right hip ICD Codes: M16.11 - Unilateral primary osteoarthritis, right hip Status: Chronic Qualifiers: Qualified Codes: M16.11 - Unilateral primary osteoarthritis, right hip Plan: postop day #2 status post right total hip arthroplasty Weightbearing as tolerated with daily physical therapy Percocet for pain control Resume home medications for DVT prophylaxis Discharge home Saturday Home health care for RN and PT Leave dressing in place unless significant drainage occurs Tai Clemens MD Oct 25, 2017 15:40
[2017-10-25] MEDS ORDERED: WALKER WHEELS/F1 MIS (17:25)
[2017-10-25] MEDS ORDERED: OXYC1TAB63 PO (17:25)
[2017-10-25] MEDS: TERAZOSIN HCL 5 MG CAP PO SCH (21:35)
[2017-10-26 00:06] VITALS: BP 145/74; PULSE 72; RESP 18; TEMP 98.1; O2SAT 96
[2017-10-26] MEDS: oxyCODONE/ACETAMINOPHEN 5 MG/325 MG TAB PO PRN ×2 (03:36→13:08)
[2017-10-26 04:00] VITALS: BP 119/64; PULSE 81; RESP 18; TEMP 98.1; O2SAT 95
[2017-10-26] MEDS: SODIUM CHLOR 0.9% 1000 ML INJ 1,000 ML IV SCH ×2 (05:46→23:55)
[2017-10-26 07:10] VITALS: BP 110/83; PULSE 81; RESP 18; TEMP 97.9; O2SAT 94
[2017-10-26] MEDS: DOCUSATE SODIUM 50 MG/SENNA 8.6 MG TAB PO SCH ×2 (08:43→23:55)
[2017-10-26] MEDS: APIXABAN 5 MG TABLET PO SCH ×2 (08:43→23:55)
[2017-10-26] MEDS: MULTIVITAMIN TAB PO SCH (08:43)
[2017-10-26] MEDS: PRAVASTATIN SOD 40 MG TAB PO SCH (08:43)
[2017-10-26] MEDS: POTASSIUM CHLORIDE 20 MEQ CONTROLLED RELEASE TAB PO SCH (08:43)
[2017-10-26] MEDS: FUROSEMIDE 20 MG TAB PO SCH (09:00)
[2017-10-26] MEDS: METOPROLOL TARTRATE 100 MG TAB PO SCH ×2 (09:00→21:00)
[2017-10-26] MEDS: LISINOPRIL 20 MG TAB PO SCH (09:00)
--- NOTE | 2017-10-26 09:04 | PD.ORT.PN ---
Subjective Subjective Remarks Resting comfortably. Progressing well with physical therapy. Blood pressure is been more reasonable. He is anxious to go home Objective Vitals Vital Signs Date Time Temp Pulse Resp B/P (MAP) Pulse Ox O2 Delivery O2 Flow Rate FiO2 10/26/17 07:10 97.9 81 18 110/83 (92) 94 10/26/17 04:00 98.1 81 18 119/64 (82) 95 10/26/17 00:06 98.1 72 18 145/74 (97) 96 10/25/17 20:46 21 10/25/17 20:00 97.5 74 18 130/63 (85) 96 10/25/17 16:00 97.3 80 18 99/58 (72) 97 10/25/17 14:20 84 17 119/64 (82) 10/25/17 14:03 94 21 10/25/17 12:00 104/57 (73) 10/25/17 11:35 87/54 (65) 10/25/17 11:25 97.6 88 18 82/50 (61) 95 I/O 10/25/17 10/25/17 10/25/17 10/26/17 10/26/17 10/26/17 07:00 15:00 23:00 07:00 15:00 23:00 Intake Total 240 ml 563 ml 720 ml 420 ml Output Total 850 ml 900 ml Balance -610 ml 563 ml 720 ml -480 ml Intake Oral 240 ml 720 ml 420 ml IV Total 563 ml Output Urine Total 850 ml 900 ml # Voids 4 # Bowel Movements 0 0 0 Objective Remarks Right hip Dressing clean dry and intact With negative Homans sign Motor, sensory and vascular exam intact Assessment & Plan Problem List: (1) Osteoarthritis of right hip ICD Codes: M16.11 - Unilateral primary osteoarthritis, right hip Status: Chronic Qualifiers: Qualified Codes: M16.11 - Unilateral primary osteoarthritis, right hip Plan: postop day #3 status post right total hip arthroplasty Weightbearing as tolerated with daily physical therapy Percocet for pain control Resume home medications for DVT prophylaxis Discharge home today Home health care for RN and PT Leave dressing in place unless significant drainage occurs Kevin Barber Jr. Oct 26, 2017 09:04
[2017-10-26 10:24] LABS: AUTOMATED NEUTROPHIL # 8.9 TH/MM3 (1.8-7.7); BASOPHIL # 0.1 TH/MM3 (0-0.2); BASOPHIL % 0.6 % (0.0-2.0); EOSINOPHIL # 0.2 TH/MM3 (0-0.4); EOSINOPHIL % 1.5 % (0.0-4.0); HEMOGLOBIN 12.6 GM/DL (13.0-17.0); LYMPH % 14.3 % (9.0-44.0); LYMPHOCYTE # 1.8 TH/MM3 (1.0-4.8); MEAN CORPUSCULAR HEMOGLOBIN 28.2 PG (27.0-34.0); MEAN CORPUSCULAR HGB CONC 33.2 % (32.0-36.0); MEAN PLATELET VOLUME 8.8 FL (7.0-11.0); MONO % 11.7 % (0.0-8.0); MONOCYTE # 1.4 TH/MM3 (0-0.9); NEUT % 71.9 % (16.0-70.0); PLATELET COUNT 237 TH/MM3 (150-450); RED BLOOD COUNT 4.47 MIL/MM3 (4.50-5.90); RED CELL DISTRIBUTION WIDTH 15.2 % (11.6-17.2); WHITE BLOOD COUNT 12.3 TH/MM3 (4.0-11.0)
[2017-10-26 10:30] LABS: BICARBONATE 25.1 MEQ/L (21.0-32.0); CALCIUM 8.9 MG/DL (8.5-10.1); CREATININE 1.44 MG/DL (0.60-1.30)
[2017-10-26 11:36] VITALS: BP 109/58; PULSE 76; RESP 18; TEMP 97.4; O2SAT 96
--- NOTE | 2017-10-26 14:45 | HHI.PR ---
Subjective Remarks Patient c/o intermitted dizziness. In further discussion dizziness seems worse after Percocet Objective Vitals Vital Signs Date Time Temp Pulse Resp B/P (MAP) Pulse Ox O2 Delivery O2 Flow Rate FiO2 10/26/17 11:36 97.4 76 18 109/58 (75) 96 10/26/17 10:19 21 10/26/17 07:10 97.9 81 18 110/83 (92) 94 10/26/17 04:00 98.1 81 18 119/64 (82) 95 10/26/17 00:06 98.1 72 18 145/74 (97) 96 10/25/17 20:46 21 10/25/17 20:00 97.5 74 18 130/63 (85) 96 10/25/17 16:00 97.3 80 18 99/58 (72) 97 10/26/17 10/26/17 10/27/17 15:00 23:00 07:00 Output Total 325 ml Balance -325 ml Output Urine Total 325 ml Result Diagram: 10/26/17 0943 10/26/17 0943 Other Results Laboratory Tests Test 10/26/17 09:43 White Blood Count 12.3 TH/MM3 Red Blood Count 4.47 MIL/MM3 Hemoglobin 12.6 GM/DL Hematocrit 38.0 % Mean Corpuscular Volume 85.0 FL Mean Corpuscular Hemoglobin 28.2 PG Mean Corpuscular Hemoglobin Concent 33.2 % Red Cell Distribution Width 15.2 % Platelet Count 237 TH/MM3 Mean Platelet Volume 8.8 FL Neutrophils (%) (Auto) 71.9 % Lymphocytes (%) (Auto) 14.3 % Monocytes (%) (Auto) 11.7 % Eosinophils (%) (Auto) 1.5 % Basophils (%) (Auto) 0.6 % Neutrophils # (Auto) 8.9 TH/MM3 Lymphocytes # (Auto) 1.8 TH/MM3 Monocytes # (Auto) 1.4 TH/MM3 Eosinophils # (Auto) 0.2 TH/MM3 Basophils # (Auto) 0.1 TH/MM3 CBC Comment DIFF FINAL Differential Comment Blood Urea Nitrogen 33 MG/DL Creatinine 1.44 MG/DL Random Glucose 131 MG/DL Calcium Level 8.9 MG/DL Magnesium Level 2.0 MG/DL Sodium Level 137 MEQ/L Potassium Level 4.4 MEQ/L Chloride Level 102 MEQ/L Carbon Dioxide Level 25.1 MEQ/L Anion Gap 10 MEQ/L Estimat Glomerular Filtration Rate 49 ML/MIN Imaging Last Impressions Hip X-Ray 10/24/17 0000 Signed Impressions: Service Date/Time: September 10:55 - CONCLUSION: Expected postoperative changes status post arthroplasty. Kevin Anaya MD A/P Problem List: (1) Osteoarthritis of right hip ICD Codes: M16.11 - Unilateral primary osteoarthritis, right hip Status: Chronic Plan: S/P Right total hip arthroplasty anterior approach with Dr. Clemens Patient on Eliquis for anticoagulation Patient seems to be dizzy after Percocet will DC Percocet and start Ultram as needed for pain Also patient has been hypotensive decrease metoprolol to 50 mg PO BID, DC Lisinopril would like to watch till tomorrow Patient expresses that he would like to go to SNF for short term rehab rather than home Consult placed to Case Management (2) Afib ICD Codes: I48.91 - Unspecified atrial fibrillation Status: Acute Plan: Continue patient's home Eliquis Patient hypotensive will decrease metoprolol to 50 mg PO BID with hold parameters (3) Hyperlipidemia ICD Codes: E78.5 - Hyperlipidemia Status: Acute Plan: Continue patient's home pravastatin 40mg daily (4) Hypertension ICD Codes: I10 - Hypertension Status: Chronic Plan: Continue patient's home Lasix 20 mg PO daily decrease metoprolol 50 mg PO BID DC Lisinopril (5) CVA (cerebral vascular accident) ICD Codes: I63.9 - CVA (cerebral vascular accident) Status: Chronic Plan: Continue home pravastatin 40 mg PO daily and eliquis 5 mg daily (6) CAD (coronary artery disease) ICD Codes: I25.10 - Coronary artery disease Status: Chronic Plan: CAD status post RCA stent in 2014 Continue home pravastatin 40 mg PO daily Assessment and Plan Patient examined. Assessment and plan formulated with Gemini Pride PA-C. I agree with the above. Problem Qualifiers (1) Osteoarthritis of right hip: Qualified Codes: M16.11 - Unilateral primary osteoarthritis, right hip Gemini Pride Oct 26, 2017 14:45 Derek Adams DO Oct 28, 2017 05:49
[2017-10-26 15:56] VITALS: BP 123/55; PULSE 79; RESP 18; TEMP 98.2; O2SAT 95
[2017-10-26] MEDS: LEVOTHYROXINE SODIUM 50 MCG TAB PO SCH (17:04)
[2017-10-26] MEDS: traMADol HCL 50 MG TAB PO PRN (17:08)
[2017-10-26 21:23] VITALS: BP 109/62; PULSE 85; RESP 20; TEMP 98; O2SAT 97
[2017-10-26] MEDS: TERAZOSIN HCL 5 MG CAP PO SCH (23:54)
[2017-10-27] VITALS: BP 108/56; PULSE 86; RESP 22; TEMP 97.6; O2SAT 97
[2017-10-27] MEDS: traMADol HCL 50 MG TAB PO PRN ×3 (00:02→13:55)
[2017-10-27] MEDS ORDERED: POLYETHYLENE GLYCOL 17 GM PKG PO SCH (04:45)
[2017-10-27] MEDS ORDERED: POLYETHYLENE GLYCOL 17 GM PKG PO PRN (04:45)
[2017-10-27 05:49] VITALS: BP 131/76; PULSE 91; RESP 20; TEMP 97.6; O2SAT 94
[2017-10-27] MEDS: LEVOTHYROXINE SODIUM 50 MCG TAB PO SCH (06:00)
[2017-10-27 06:50] LABS: AUTOMATED NEUTROPHIL # 6.9 TH/MM3 (1.8-7.7); BASOPHIL # 0.1 TH/MM3 (0-0.2); BASOPHIL % 0.7 % (0.0-2.0); EOSINOPHIL # 0.2 TH/MM3 (0-0.4); EOSINOPHIL % 1.9 % (0.0-4.0); HEMATOCRIT 34.6 % (39.0-51.0); HEMOGLOBIN 11.7 GM/DL (13.0-17.0); LYMPH % 20.1 % (9.0-44.0); LYMPHOCYTE # 2.2 TH/MM3 (1.0-4.8); MEAN CELL VOLUME 84.2 FL (80.0-100.0); MEAN CORPUSCULAR HEMOGLOBIN 28.4 PG (27.0-34.0); MEAN CORPUSCULAR HGB CONC 33.8 % (32.0-36.0); MEAN PLATELET VOLUME 8.7 FL (7.0-11.0); MONO % 13.3 % (0.0-8.0); MONOCYTE # 1.4 TH/MM3 (0-0.9); PLATELET COUNT 231 TH/MM3 (150-450); RED BLOOD COUNT 4.12 MIL/MM3 (4.50-5.90); RED CELL DISTRIBUTION WIDTH 15.8 % (11.6-17.2); WHITE BLOOD COUNT 10.7 TH/MM3 (4.0-11.0)
[2017-10-27 07:04] LABS: BICARBONATE 23.4 MEQ/L (21.0-32.0); CALCIUM 8.6 MG/DL (8.5-10.1); CREATININE 1.2 MG/DL (0.60-1.30)
[2017-10-27 08:00] VITALS: BP 143/82; PULSE 93; RESP 18; TEMP 98.1; O2SAT 94
[2017-10-27] MEDS: POTASSIUM CHLORIDE 20 MEQ CONTROLLED RELEASE TAB PO SCH (08:50)
[2017-10-27] MEDS: MULTIVITAMIN TAB PO SCH (08:50)
[2017-10-27] MEDS: DOCUSATE SODIUM 50 MG/SENNA 8.6 MG TAB PO SCH (08:50)
[2017-10-27] MEDS: METOPROLOL TARTRATE 100 MG TAB PO SCH (08:51)
[2017-10-27] MEDS: FUROSEMIDE 20 MG TAB PO SCH (08:51)
[2017-10-27] MEDS: PRAVASTATIN SOD 40 MG TAB PO SCH (08:51)
[2017-10-27] MEDS: APIXABAN 5 MG TABLET PO SCH (08:52)
--- NOTE | 2017-10-27 09:41 | PD.ORT.PN ---
Subjective Subjective Remarks Resting comfortably. Progressing well with physical therapy. Blood pressure is been more reasonable. Feels that going home is going to be difficult since he lives with his [id number]. He needs assistance standing Objective Vitals Vital Signs Date Time Temp Pulse Resp B/P (MAP) Pulse Ox O2 Delivery O2 Flow Rate FiO2 10/27/17 08:00 98.1 93 18 143/82 (102) 94 10/27/17 05:49 97.6 91 20 131/76 (94) 94 10/27/17 00:00 97.6 86 22 108/56 (73) 97 10/26/17 21:23 98.0 85 20 109/62 (78) 97 10/26/17 15:56 98.2 79 18 123/55 (77) 95 10/26/17 11:36 97.4 76 18 109/58 (75) 96 10/26/17 10:19 21 I/O 10/26/17 10/26/17 10/26/17 10/27/17 10/27/17 10/27/17 07:00 15:00 23:00 07:00 15:00 23:00 Intake Total 420 ml 720 ml 240 ml Output Total 900 ml 325 ml 300 ml 525 ml Balance -480 ml -325 ml 420 ml -285 ml Intake Oral 420 ml 720 ml 240 ml Output Urine Total 900 ml 325 ml 300 ml 525 ml # Voids 4 # Bowel Movements 0 0 Result Diagram: 10/27/17 0450 10/27/17 0450 Objective Remarks Right hip Dressing clean dry and intact With negative Homans sign Motor, sensory and vascular exam intact Assessment & Plan Problem List: (1) Osteoarthritis of right hip ICD Codes: M16.11 - Unilateral primary osteoarthritis, right hip Status: Chronic Qualifiers: Qualified Codes: M16.11 - Unilateral primary osteoarthritis, right hip Plan: postop day #4 status post right total hip arthroplasty Weightbearing as tolerated with daily physical therapy Percocet for pain control Resume home medications for DVT prophylaxis Discharge to rehab today Home health care for RN and PT Leave dressing in place unless significant drainage occurs Kevin Barber Jr. Oct 27, 2017 09:41
[2017-10-27 11:56] VITALS: BP 130/71; PULSE 88; RESP 18; TEMP 97.9; O2SAT 94
== END 2017-10-27 16:48 | DRG 470 ==
LOC: HSDC 08:00 → HSDI 13:04 → N06B 15:55
PROVIDERS: ADMIT Orthopaedic Surgery Sports Medicine; ATTEND Orthopaedic Surgery Sports Medicine
PROC: 0SR904Z Replacement of Right Hip Joint with Ceramic on Polyethylene Synthetic Substitute, Open Approach (ICD-10-PCS; principal; 2017-10-24 09:57)
DX: M16.11 Unilateral primary osteoarthritis, right hip (principal); Z96.642 Presence of left artificial hip joint; I48.91 Unspecified atrial fibrillation; E78.5 Hyperlipidemia, unspecified; I25.10 Atherosclerotic heart disease of native coronary artery without angina pectoris; Z79.01 Long term (current) use of anticoagulants; Z79.899 Other long term (current) drug therapy; Z86.73 Personal history of transient ischemic attack (TIA), and cerebral infarction without residual deficits; Z95.5 Presence of coronary angioplasty implant and graft; G47.33 Obstructive sleep apnea (adult) (pediatric); Z88.1 Allergy status to other antibiotic agents; Z88.8 Allergy status to other drugs, medicaments and biological substances; Z91.018 Allergy to other foods
CPT/HCPCS: 73502; 76000; 80048; 83735; 85025; 86850; 86900; 86901; 94150; C1776; J0131; J0690; J1170; J2175; J2250; J3010; J3370; J7030; J7120